=== PATIENT | female | born 1990 | race American Indian/Alaskan Native ===

== ENCOUNTER 2019-04-22 20:26 | Emergency (ER) | payer OTHER ==
--- NOTE | 2019-04-22 21:53 | Event Note ---
ED Screening Note ED Screening Note: pt presents RUQ pain radiating to the back that began today +nausea no vomiting no diarrhea no urinary sx PMHx gallstones no allergies to meds LNMP: two weeks ago This initial assessment/diagnostic orders/clinical plan/treatment(s) is/are subject to change based on patients health status, clinical progression and re- assessment by fellow clinical providers in the ED. Further treatment and workup at subsequent clinical providers discretion. Patient/guardian urged not to elope from the ED as their condition may be serious if not clinically assessed and managed. Initial orders include: labs, US, UA
[2019-04-22 22:26] LABS: Hematocrit 40.1 % (30.3-42.9); Mean Corpuscular HGB Conc 35 % (30-34); Mean Corpuscular Volume 88 fl (79-97); Platelet Count 280 K/mm3 (140-440); Red Blood Count 4.55 M/mm3 (3.65-5.03)
[2019-04-22 22:34] LABS: Alanine Aminotransferase 51 units/L (7-56); Albumin 3.5 g/dL (3.9-5); BUN/Creatinine Ratio 13; Blood Urea Nitrogen 10 mg/dL (7-17); Calcium 9.6 mg/dL (8.4-10.2); Hemolysis Index 16
[2019-04-22 22:57] LABS: Basophils % (Manual) 0 % (0.0-1.8); Eosinophils % (Manual) 0 % (0.0-4.3); RBC Morphology Normal; Total Cells Counted 100
[2019-04-22 23:10] LABS: Bacteria,Urine 1+ /HPF (Negative); Bilirubin,Urine NEG (Negative); Blood,Urine SM (Negative); Color,Urine Amber (Yellow); Mucus,Urine FEW /HPF
[2019-04-22 23:11] LABS: HCG Qualitative,Urine Negative (Negative); WBC,Urine > 182.0 /HPF (0.0-6.0)
[2019-04-23] MEDS ORDERED: KETOROLAC 30 MG/1 ML INJ IM ONE (00:26)
[2019-04-23] MEDS ORDERED: KETOROLAC 30 MG/1 ML INJ ONE (00:26)
--- NOTE | 2019-04-23 00:46 | Ultrasound Report ---
ULTRASOUND ABDOMEN, LIMITED (RIGHT UPPER QUADRANT) INDICATION: RUQ pain to back, hx of gallstones. COMPARISON: None available. FINDINGS: Pancreas: Visualized portion shows no significant abnormality. Liver: Normal. Gallbladder: Cholelithiasis. The gallbladder is otherwise unremarkable. Bile ducts: Normal. Common Bile Duct measures 1-2 mm. Free fluid: None. Additional Findings: None. IMPRESSION: 1. Cholelithiasis. Gallbladder wall measures 3 mm in diameter, at the upper limits of normal. No comm on duct dilatation or pericholecystic fluid. Signer Name: Gabriele Madrid MD Signed: 04/23/2019 12:42 AM Workstation Name: [email or web address]
[2019-04-23] MEDS ORDERED: ONDANSETRON 4 MG ODT TAB PO ONE (00:55)
[2019-04-23] MEDS ORDERED: SODIUM CHLORIDE 0.9% 1000 ML 1,000 ML IV ONE (00:58)
[2019-04-23] MEDS ORDERED: cefTRIAXone/NS 1 GM/50 ML 1 GM/50 ML BAG IV ONE (00:58)
--- NOTE | 2019-04-23 01:07 | Emergency Department Report ---
ED Abdominal Pain HPI - General Chief Complaint: Abdominal Pain Stated Complaint: GALL STONES Time Seen by Provider: 04/22/19 21:51 Source: patient Mode of arrival: Ambulatory Limitations: No Limitations - History of Present Illness Initial Comments: Ms. Berger is a 28-year-old -[place] female with a history of gallstones who presents for right flank pain radiating from abdomen to right flank pain described as 8/10 exacerbated by movement and deep inspiration. Patient states frequency and urgency. No hematuria no dysuria no vaginal discharge. No gallbladder and proximal gallbladder problems since last year. She is not currently taking a PPI or H2 moriah however patient is tolerating p.o. intake without nausea or vomiting. There is no fever or chills. MD Complaint: abdominal pain (right superpubic), flank pain Onset/Timin -: days(s) Location: suprapubic, R flank Radiation: R flank Migration to: suprapubic Severity: moderate Severity scale (0 -10): 8 Quality: aching, sharp Consistency: constant Improves With: nothing Worsens With: movement Associated Symptoms: dysuria. denies: nausea, vomiting, diarrhea - Related Data LMP Date: 04/09/19 Previous Rx's Medication Instructions Recorded Last Taken Type Ciprofloxacin HCl [Ciprofloxacin 500 mg PO Q12HR 10 Days #20 tab 04/23/19 Unknown Rx TAB] Famotidine [Pepcid] 20 mg PO BID #30 tablet 04/23/19 Unknown Rx Ketorolac [Toradol] 10 mg PO Q6H PRN #12 tablet 04/23/19 Unknown Rx metroNIDAZOLE [Flagyl] 500 mg PO Q8HR 10 Days #30 tablet 04/23/19 Unknown Rx Allergies Allergy/AdvReac Type Severity Reaction Status Date / Time No Known Allergies Allergy Verified 04/22/19 20:41 ED Review of Systems ROS: Stated complaint: GALL STONES Other details as noted in HPI Constitutional: denies: chills, fever Eyes: denies: eye pain, eye discharge, vision change ENT: denies: ear pain, throat pain Respiratory: denies: cough, shortness of breath, wheezing Cardiovascular: denies: chest pain, palpitations Endocrine: no symptoms reported Gastrointestinal: abdominal pain. denies: nausea, vomiting, diarrhea, constipation, hematemesis, melena Genitourinary: urgency, dysuria, frequency. denies: hematuria, discharge, abnormal menses, dyspareunia Musculoskeletal: denies: back pain, joint swelling, arthralgia Skin: denies: rash, lesions Neurological: denies: headache, weakness, paresthesias Psychiatric: denies: anxiety, depression Hematological/Lymphatic: denies: easy bleeding, easy bruising ED Past Medical Hx - Social History Smoking Status: Current Every Day Smoker Substance Use Type: Alcohol, Marijuana - Medications Home Medications: Home Medications Medication Instructions Recorded Confirmed Last Taken Type Ciprofloxacin HCl [Ciprofloxacin 500 mg PO Q12HR 10 Days #20 tab 04/23/19 Unknown Rx TAB] Famotidine [Pepcid] 20 mg PO BID #30 tablet 04/23/19 Unknown Rx Ketorolac [Toradol] 10 mg PO Q6H PRN #12 tablet 04/23/19 Unknown Rx metroNIDAZOLE [Flagyl] 500 mg PO Q8HR 10 Days #30 tablet 04/23/19 Unknown Rx ED Physical Exam - General Limitations: No Limitations General appearance: alert, in no apparent distress - Head Head exam: Present: atraumatic, normocephalic - Eye Eye exam: Present: normal appearance, PERRL, EOMI Pupils: Present: normal accommodation - ENT ENT exam: Present: mucous membranes moist - Neck Neck exam: Present: normal inspection - Respiratory Respiratory exam: Present: normal lung sounds bilaterally. Absent: respiratory distress, wheezes, stridor, chest wall tenderness - Cardiovascular Cardiovascular Exam: Present: regular rate, normal rhythm, normal heart sounds. Absent: systolic murmur, diastolic murmur, rubs, gallop - GI/Abdominal GI/Abdominal exam: Present: soft, normal bowel sounds. Absent: distended, tenderness, guarding, rebound, rigid, bruit, hernia - Rectal Rectal exam: Present: deferred - Extremities Exam Extremities exam: Present: normal inspection, full ROM, normal capillary refill - Back Exam Back exam: Present: normal inspection, full ROM, tenderness, CVA tenderness (R). Absent: rash noted - Neurological Exam Neurological exam: Present: alert, oriented X3, CN II-XII intact, normal gait - Psychiatric Psychiatric exam: Present: normal affect, normal mood - Skin Skin exam: Present: warm, dry, intact, normal color. Absent: rash ED Course Vital Signs 04/22/19 04/23/19 21:51 00:48 Temperature 98.3 F Pulse Rate 66 Respiratory 18 18 Rate Blood Pressure 142/81 O2 Sat by Pulse 100 Oximetry ED Medical Decision Making - Lab Data Result diagrams: 04/22/19 21:57 04/22/19 21:57 Labs 04/22/19 04/22/19 04/22/19 21:57 21:57 Unknown WBC 11.4 H RBC 4.55 Hgb 14.0 Hct 40.1 MCV 88 MCH 31 MCHC 35 H RDW 15.0 Plt Count 280 Lymph % (Auto) [employer] Specialist [place] % (Auto) Seed And Fertilizer Specialist Eos % (Auto) Seed And Fertilizer Specialist Baso % (Auto) Seed And Fertilizer Specialist Lymph # Seed And Fertilizer Specialist [place] # Seed And Fertilizer Specialist Eos # Seed And Fertilizer Specialist Baso # Seed And Fertilizer Specialist Add Manual Diff Complete Total Counted 100 Seg Neutrophils % [employer] Fertilizer Specialist Seg Neuts % (Manual) 72.0 H Band Neutrophils % 0 Lymphocytes % (Manual) 15.0 Reactive Lymphs % (Man) 0 Monocytes % (Manual) 13.0 H Eosinophils % (Manual) 0 Basophils % (Manual) 0 Metamyelocytes % 0 Myelocytes % 0 Promyelocytes % 0 Blast Cells % 0 Nucleated RBC % Not Reportable Seg Neutrophils # Seed And Fertilizer Specialist Seg Neutrophils # Man 8.2 H Band Neutrophils # 0.0 Lymphocytes # (Manual) 1.7 Abs React Lymphs (Man) 0.0 Monocytes # (Manual) 1.5 H Eosinophils # (Manual) 0.0 Basophils # (Manual) 0.0 Metamyelocytes # 0.0 Myelocytes # 0.0 Promyelocytes # 0.0 Blast Cells # 0.0 WBC Morphology Not Reportable Hypersegmented Neuts Not Reportable Hyposegmented Neuts Not Reportable Hypogranular Neuts Not Reportable Smudge Cells Not Reportable Toxic Granulation Not Reportable Toxic Vacuolation Not Reportable Dohle Bodies Not Reportable Pelger-Huet Anomaly Not Reportable Michelle Rods Not Reportable Platelet Estimate Not Reportable Clumped Platelets Not Reportable Plt Clumps, EDTA Not Reportable Large Platelets Not Reportable Giant Platelets Not Reportable Platelet Satelliting Not Reportable Plt Morphology Comment Not Reportable RBC Morphology Normal Dimorphic RBCs Not Reportable Polychromasia Not Reportable Hypochromasia Not Reportable Poikilocytosis Not Reportable Anisocytosis Not Reportable Microcytosis Not Reportable Macrocytosis Not Reportable Spherocytes Not Reportable Pappenheimer Bodies Not Reportable Sickle Cells Not Reportable Target Cells Not Reportable Tear Drop Cells Not Reportable Ovalocytes Not Reportable Helmet Cells Not Reportable Schaeffer-Star Bodies Not Reportable Harviell Rings Not Reportable [place] Cells Not Reportable Bite Cells Not Reportable Crenated Cell Not Reportable Elliptocytes Not Reportable Acanthocytes (Spur) Not Reportable Rouleaux Not Reportable Hemoglobin C Crystals Not Reportable Schistocytes Not Reportable Malaria parasites Not Reportable Varun Bodies Not Reportable Hem Pathologist Commnt No Sodium 137 Potassium 3.1 L Chloride 96.6 L Carbon Dioxide 23 Anion Gap 21 BUN 10 Creatinine 0.8 Estimated GFR > 60 BUN/Creatinine Ratio 13 Glucose 135 H Calcium 9.6 Total Bilirubin 1.40 H AST 19 ALT 51 Alkaline Phosphatase 94 Total Protein 8.1 Albumin 3.5 L Albumin/Globulin Ratio 0.8 Lipase 11 L Urine Color Yvonne Urine Turbidity Cloudy Urine pH 5.0 Ur Specific [place] 1.026 Urine Protein 100 mg/dl Urine Glucose (UA) Neg Urine Ketones Neg Urine Blood Sm Urine Nitrite Pos Urine Bilirubin Neg Urine Urobilinogen 4.0 Ur Leukocyte Esterase Lg Urine WBC (Auto) > 182.0 H Urine RBC (Auto) 7.0 U Epithel Cells (Auto) 16.0 H Urine Bacteria (Auto) 1+ Urine Mucus Few Urine Yeast (Budding) 2+ Urine HCG, Qual Negative - Radiology Data Radiology results: report reviewed, image reviewed ULTRASOUND ABDOMEN, LIMITED (RIGHT UPPER QUADRANT) INDICATION: RUQ pain to back, hx of gallstones. COMPARISON: None available. FINDINGS: Pancreas: Visualized portion shows no significant abnormality. Liver: Normal. Gallbladder: Cholelithiasis. The gallbladder is otherwise unremarkable. Bile ducts: Normal. Common Bile Duct measures 1-2 mm. Free fluid: None. Addit ional Findings: None. IMPRESSION: 1. Cholelithiasis. Gallbladder wall measures 3 mm in diameter, at the upper limits of normal. No common duct dilatation or pericholecystic fluid. Signer Name: Gabriele Madrid MD Signed: 04/23/2019 12:42 AM Workstation Name: [id number] Transcribed By: KEYONA Dictated By: Gabriele Madrid MD Electronically Authenticated By: Gabriele Madrid MD Signed Date/Time: 04/23/1941 DD/ TD/TT: Findings Reporting MD: Gabriele Madrid Dictation Time: April 23, 2019 00:35 Frame Nailer: Not available Accounting Associate Date: CT ABDOMEN AND PELVIS WITHOUT IV CONTRAST INDICATION: renal stone. Flank pain. COMPARISON: None available. TECHNIQUE: All CT scans at this facility use dose modulation, automated exposure control, iterative reconstruction or weight based dosing, when appropriate, to reduce radiation dose to as low as reasonably achievable. FINDINGS: Lung Bases: No significant abnormality. Skeletal System: No acute abnormality. ABDOMEN: Liver: No significant abnormality. Gallbladder: Multiple stones are seen in the gallbladder. There is diffuse gallbladder wall edema. Bile Ducts: No significant abnormality. Pancreas: No significant abnormality. Spleen: No significant abnormality. Adrenals: No significant abnormality. Right Kidney: There is a nonobstructing stone within an upper pole calyceal diverticulum. There is also lower pole nonobstructing stone. No hydronephrosis. However, there is mild thickening of the urothelium in the right renal pelvis and right ureter. Left Kidney: No significant abnormality. Upper GI tract: No significant abnormality. Lymph Nodes: No significant adenopathy. Aorta: No significant abnormality. Additional Findings: No significant abnormality. PELVIS: Colon: No acute abnormality. Urinary Bladder and Distal Ureters: Bladder is decompressed, limiting its evaluation. Appendix: No significant abnormality. Lymph Nodes: No significant adenopathy. Additional Findings: None. IMPRESSION: [facility] [address] [place] [address] P [phone] F [phone] [facility] - Report exported on Apr 23, 2019 01:43:51 -0600 - Page 2 of 2 1. Right nephrolithiasis, as above. No hydronephrosis. There is mild thickening of the right renal pelvis and right ureter which could be seen in the setting of pyonephrosis. The bladder is decompressed, limiting its evaluation. 2. Cholelithiasis with gallbladder wall thickening. This could be seen in the setting of cholecystitis. No common duct dilatation. Signer Name: Gabriele Madrid MD Signed: 04/23/2019 12:35 AM Workstation Name: [id number] - Medical Decision Making Ultrasound cholelithiasis without cholecystitis CT abdomen pelvis: non obstructing right renal stone, Cholelithiasis, with gallbladder wall edema, UA positive for nitrates white blood cells bacteria Patient treated with IV normal saline x1 L Rocephin 1 g , pt offered admission and general surgery consult, pt states Gallstones since 16 yrs old, not will to be admitted will follow up out patient, pt is a/o x 3, demontrates sound decision making capacity. pt has had the opportunity to ask and I have answered all questions to her satisfaction , including, possibility of worsing condition and even . plan: dx: UTI, Gallstones, Cholecystitis, Renal Stones, abx, nsaids, Pt will follow up with General surgery outpatient will call in am for appointment set up, Follow up with GI doctor, and follow up with urology given referrals to same, pt is signing out AMA at this time. Given strict instructions to return to emergency if symptoms worsen, pt verbalized agreement and understanding of same. Critical care attestation.: If time is entered above; I have spent that time in minutes in the direct care of this critically ill patient, excluding procedure time. ED Disposition Clinical Impression: Gallstones, Kidney stones, Cholecystitis UTI (urinary tract infection) Qualifiers: Urinary tract infection type: acute cystitis Hematuria presence: without hematuria Qualified Code(s): N30.00 - Acute cystitis without hematuria Disposition: LEFT AGAINST MED ADVICE Is pt being admited?: No Does the pt Need Aspirin: No Condition: Stable Instructions: Urinary Tract Infection in Women (ED), Kidney Stones (ED), Cholecystitis (ED), Cholelithiasis (ED) Prescriptions: Ciprofloxacin HCl [Ciprofloxacin TAB] 500 mg PO Q12HR 10 Days #20 tab metroNIDAZOLE [Flagyl] 500 mg PO Q8HR 10 Days #30 tablet Famotidine [Pepcid] 20 mg PO BID #30 tablet Ketorolac [Toradol] 10 mg PO Q6H PRN #12 tablet PRN Reason: Pain Referrals: EBENEZER GONZALEZ MD [Staff Physician] - 3-5 Days WIN RAMOS MD [Staff Physician] - ANDREW CASTELLANO MD [Staff Physician] - 2-3 Days [facility] [Provider Group] - 2-3 Days Forms: AMA Form Time of Disposition: 01:12
--- NOTE | 2019-04-23 02:45 | Cat Scan Report ---
CT ABDOMEN AND PELVIS WITHOUT IV CONTRAST INDICATION: renal stone. Flank pain. COMPARISON: None available. TECHNIQUE: All CT scans at this facility use dose modulation, automated exposure control, iterative reconstructi on or weight based dosing, when appropriate, to reduce radiation dose to as low as reasonably achieva ble. FINDINGS: Lung Bases: No significant abnormality. Skeletal System: No acute abnormality. ABDOMEN: Liver: No significant abnormality. Gallbladder: Multiple stones are seen in the gallbladder. There is diffuse gallbladder wall edema. Bile Ducts: No significant abnormality. Pancreas: No significant abnormality. Spleen: No significant abnormality. Adrenals: No significant abnormality. Right Kidney: There is a nonobstructing stone within an upper pole calyceal diverticulum. There is al so lower pole nonobstructing stone. No hydronephrosis. However, there is mild thickening of the uroth elium in the right renal pelvis and right ureter. Left Kidney: No significant abnormality. Upper GI tract: No significant abnormality. Lymph Nodes: No significant adenopathy. Aorta: No significant abnormality. Additional Findings: No significant abnormality. PELVIS: Colon: No acute abnormality. Urinary Bladder and Distal Ureters: Bladder is decompressed, limiting its evaluation. Appendix: No significant abnormality. Lymph Nodes: No significant adenopathy. Additional Findings: None. IMPRESSION: 1. Right nephrolithiasis, as above. No hydronephrosis. There is mild thickening of the right renal p rc and right ureter which could be seen in the setting of pyonephrosis. The bladder is decompresse d, limiting its evaluation. 2. Cholelithiasis with gallbladder wall thickening. This could be seen in the setting of cholecystit is. No common duct dilatation. Signer Name: Gabriele Madrid MD Signed: 04/23/2019 1:35 AM Workstation Name: [email or web address]
[2019-04-23 03:26] VITALS: BP 134/81
== END 2019-04-23 03:25 | disposition left against medical advice (07) ==
LOC: ED 20:26
DX: N39.0 Urinary tract infection, site not specified (principal); K80.60 Calculus of gallbladder and bile duct with cholecystitis, unspecified, without obstruction; N20.0 Calculus of kidney; F17.200 Nicotine dependence, unspecified, uncomplicated; F12.10 Cannabis abuse, uncomplicated
CPT/HCPCS: 36415; 74176; 76705; 80053; 81001; 81025; 83690; 85007; 85025; 96365; 96372; 99284; J0696; J1885; J7030; Q0162

== ENCOUNTER 2019-04-23 23:59 | Inpatient (IN) | payer OTHER ==
[2019-04-24] MEDS ORDERED: SODIUM CHLORIDE 0.9% 1000 ML IV SOLN IV ONE (00:10)
[2019-04-24] MEDS ORDERED: KETOROLAC 30 MG/1 ML INJ IV ONE (00:12)
[2019-04-24] MEDS ORDERED: ONDANSETRON 4 MG/2 ML INJ IV ONE ×2 (00:12→03:05)
[2019-04-24] MEDS: metroNIDAZOLE/NS 500 MG/100 ML 500 MG/100 ML BAG IV SCH ×4 (00:29→23:22)
[2019-04-24] MEDS: CEFEPIME/NS 2 GM/100 ML 2 GM/100 ML BAG IV SCH ×4 (00:30→23:10)
[2019-04-24 00:41] LABS: Mean Corpuscular HGB Conc 37 % (30-34); Mean Corpuscular Volume 86 fl (79-97); Red Blood Count 3.72 M/mm3 (3.65-5.03); Red Cell Distribution Width 14.6 % (13.2-15.2)
[2019-04-24 01:03] LABS: Alanine Aminotransferase 38 units/L (7-56); BUN/Creatinine Ratio 7; Blood Urea Nitrogen 7 mg/dL (7-17); Calcium 8.4 mg/dL (8.4-10.2); Hemolysis Index 6
--- NOTE | 2019-04-24 01:21 | Ultrasound Report ---
ULTRASOUND ABDOMEN, LIMITED (RIGHT UPPER QUADRANT) INDICATION: RUQ pain, now fever. COMPARISON: CT one day prior, ultrasound 2 days prior FINDINGS: Pancreas: Obscured by bowel gas. Liver: Normal. Gallbladder: Cholelithiasis is noted. Gallbladder wall measures 3 mm. Bile ducts: Normal. Common Bile Duct measures 1-2 mm. Free fluid: None. Additional Findings: None. IMPRESSION: 1. Cholelithiasis. Gallbladder wall edema seen on the CT from one day prior is not appreciated sonogr aphically. The gallbladder wall measures 3 mm which is within normal limits. No biliary dilatation. Signer Name: Gabriele Madrid MD Signed: 04/24/2019 1:17 AM Workstation Name: [id number]
[2019-04-24 01:40] LABS: Hematocrit 31.9 % (30.3-42.9); Hemoglobin 11.7 gm/dl (10.1-14.3)
[2019-04-24 01:50] LABS: Platelet Count 243 K/mm3 (140-440)
[2019-04-24 02:47] LABS: Bacteria,Urine 1+ /HPF (Negative); Bilirubin,Urine SM (Negative); Blood,Urine SM (Negative); Color,Urine Amber (Yellow); Hyaline Casts,Urine 4 /LPF; Mucus,Urine FEW /HPF
--- NOTE | 2019-04-24 03:05 | Emergency Department Report ---
ED Abdominal Pain HPI - General Chief Complaint: Abdominal Pain Stated Complaint: FLU SYMPTOMS/GALLBLADDER COMPLICATIONS Time Seen by Provider: 04/24/19 00:08 Source: patient, EMS Mode of arrival: Stretcher Limitations: No Limitations - History of Present Illness Initial Comments: Patient is a 28-year-old F [place]ian female who is presenting with nausea vomiting and worsening pain in the right flank. Patient was here yesterday and diagnosed with gallstones as well as pyelonephritis. Patient is given Cipro medications for symptomatic relief but is been unable to keep anything down secondary to nausea vomiting. Patient states she is has pain in the right upper quadrant with radiation to the right CVA region. Patient states she had chills this evening. She denies cough cold or congestion. Severity scale (0 -10): 9 Quality: aching Consistency: constant Improves With: nothing Worsens With: nothing Associated Symptoms: nausea, vomiting, fever, chills. denies: diarrhea, constipation, dysuria, hematemesis, hematochezia, melena, hematuria - Related Data Previous Rx's Medication Instructions Recorded Last Taken Type Ciprofloxacin HCl [Ciprofloxacin 500 mg PO Q12HR 10 Days #20 tab 04/23/19 Unknown Rx TAB] Famotidine [Pepcid] 20 mg PO BID #30 tablet 04/23/19 Unknown Rx Ketorolac [Toradol] 10 mg PO Q6H PRN #12 tablet 04/23/19 Unknown Rx metroNIDAZOLE [Flagyl] 500 mg PO Q8HR 10 Days #30 tablet 04/23/19 Unknown Rx Allergies Allergy/AdvReac Type Severity Reaction Status Date / Time No Known Allergies Allergy Verified 04/22/19 20:41 ED Review of Systems ROS: Stated complaint: FLU SYMPTOMS/GALLBLADDER COMPLICATIONS Other details as noted in HPI Comment: All other systems reviewed and negative ED Past Medical Hx - Past Medical History Previous Medical History?: Yes Additional medical history: GALLSTONES - Surgical History Past Surgical History?: No - Social History Smoking Status: Current Every Day Smoker Substance Use Type: Alcohol, Marijuana - Medications Home Medications: Home Medications Medication Instructions Recorded Confirmed Last Taken Type Ciprofloxacin HCl [Ciprofloxacin 500 mg PO Q12HR 10 Days #20 tab 04/23/19 Unknown Rx TAB] Famotidine [Pepcid] 20 mg PO BID #30 tablet 04/23/19 Unknown Rx Ketorolac [Toradol] 10 mg PO Q6H PRN #12 tablet 04/23/19 Unknown Rx metroNIDAZOLE [Flagyl] 500 mg PO Q8HR 10 Days #30 tablet 04/23/19 Unknown Rx ED Physical Exam - General Limitations: No Limitations General appearance: alert, in distress - Head Head exam: Present: atraumatic, normocephalic - Eye Eye exam: Present: normal appearance - ENT ENT exam: Present: mucous membranes moist - Neck Neck exam: Present: normal inspection - Respiratory Respiratory exam: Present: normal lung sounds bilaterally. Absent: respiratory distress, wheezes, rales, rhonchi - Cardiovascular Cardiovascular Exam: Present: regular rate, normal rhythm, tachycardia, normal heart sounds. Absent: systolic murmur, diastolic murmur, rubs, gallop - GI/Abdominal GI/Abdominal exam: Present: soft, tenderness (RUQ pain/R flank), normal bowel sounds. Absent: distended, guarding, rebound, rigid - Extremities Exam Extremities exam: Present: normal inspection - Back Exam Back exam: Present: normal inspection, CVA tenderness (R) - Neurological Exam Neurological exam: Present: alert, oriented X3 - Psychiatric Psychiatric exam: Present: normal affect, normal mood - Skin Skin exam: Present: warm, dry, intact, normal color. Absent: rash ED Course Vital Signs 04/24/19 04/24/19 04/24/19 00:09 00:13 00:15 Temperature 103.1 F H Pulse Rate 116 H 117 H Respiratory 15 18 28 H Rate Blood Pressure 99/55 100/55 O2 Sat by Pulse 97 100 Oximetry 04/24/19 04/24/19 04/24/19 00:30 00:45 01:00 Temperature Pulse Rate 106 H 103 H 102 H Respiratory 18 20 21 Rate Blood Pressure 93/57 101/59 O2 Sat by Pulse 96 98 97 Oximetry 04/24/19 04/24/19 04/24/19 01:16 01:30 01:46 Temperature Pulse Rate 109 H 99 H 103 H Respiratory 27 H 17 24 Rate Blood Pressure O2 Sat by Pulse 97 98 97 Oximetry 04/24/19 04/24/19 04/24/19 02:00 02:16 02:30 Temperature Pulse Rate 102 H 104 H 101 H Respiratory 14 16 12 Rate Blood Pressure O2 Sat by Pulse 98 98 98 Oximetry ED Medical Decision Making - Lab Data Result diagrams: 04/24/19 00:19 04/24/19 00:19 Lab Results 04/24/19 04/24/19 04/24/19 Range/Units 00:19 00:19 00:19 WBC 13.3 H (4.5-11.0) K/mm3 RBC 3.72 (3.65-5.03) M/mm3 Hgb 11.7 (10.1-14.3) gm/dl Hct 31.9 D (30.3-42.9) % MCV 86 (79-97) fl MCH 31 (28-32) pg MCHC 37 H (30-34) % RDW 14.6 (13.2-15.2) % Plt Count 243 (140-440) K/mm3 Sodium 138 (137-145) mmol/L Potassium 3.3 L (3.6-5.0) mmol/L Chloride 99.9 (98-107) mmol/L Carbon Dioxide 20 L (22-30) mmol/L Anion Gap 21 mmol/L BUN 7 (7-17) mg/dL Creatinine 1.0 (0.7-1.2) mg/dL Estimated GFR > 60 ml/min BUN/Creatinine Ratio 7 % Glucose 136 H (65-100) mg/dL Lactic Acid 3.60 H* (0.7-2.0) mmol/L Calcium 8.4 (8.4-10.2) mg/dL Total Bilirubin 2.80 H (0.1-1.2) mg/dL AST 34 (5-40) units/L ALT 38 (7-56) units/L Alkaline Phosphatase 159 H (35-129) units/L Total Protein 6.6 (6.3-8.2) g/dL Albumin 3.0 L (3.9-5) g/dL Albumin/Globulin Ratio 0.8 % Urine Color (Yellow) Urine Turbidity (Clear) Urine pH (5.0-7.0) Ur Specific [place] (1.003-1.030) Urine Protein (Negative) mg/dL Urine Glucose (UA) (Negative) mg/dL Urine Ketones (Negative) mg/dL Urine Blood (Negative) Urine Nitrite (Negative) Urine Bilirubin (Negative) Urine Ictotest (Negative) Urine Urobilinogen (<2.0) mg/dL Ur Leukocyte Esterase (Negative) Urine WBC (Auto) (0.0-6.0) /HPF Urine RBC (Auto) (0.0-6.0) /HPF U Epithel Cells (Auto) (0-13.0) /HPF Urine Bacteria (Auto) (Negative) /HPF Urine WBC Clumps /HPF Hyaline Casts /LPF Urine Mucus /HPF 04/24/19 04/24/19 04/24/19 Range/Units 01:22 02:15 02:15 WBC (4.5-11.0) K/mm3 RBC (3.65-5.03) M/mm3 Hgb (10.1-14.3) gm/dl Hct (30.3-42.9) % MCV (79-97) fl MCH (28-32) pg MCHC (30-34) % RDW (13.2-15.2) % Plt Count (140-440) K/mm3 Sodium (137-145) mmol/L Potassium (3.6-5.0) mmol/L Chloride (98-107) mmol/L Carbon Dioxide (22-30) mmol/L Anion Gap mmol/L BUN (7-17) mg/dL Creatinine (0.7-1.2) mg/dL Estimated GFR ml/min BUN/Creatinine Ratio % Glucose (65-100) mg/dL Lactic Acid 2.00 2.20 H* (0.7-2.0) mmol/L Calcium (8.4-10.2) mg/dL Total Bilirubin (0.1-1.2) mg/dL AST (5-40) units/L ALT (7-56) units/L Alkaline Phosphatase (35-129) units/L Total Protein (6.3-8.2) g/dL Albumin (3.9-5) g/dL Albumin/Globulin Ratio % Urine Color Yvonne (Yellow) Urine Turbidity Cloudy (Clear) Urine pH 5.0 (5.0-7.0) Ur Specific [place] 1.020 (1.003-1.030) Urine Protein 100 mg/dl (Negative) mg/dL Urine Glucose (UA) Neg (Negative) mg/dL Urine Ketones Neg (Negative) mg/dL Urine Blood Sm (Negative) Urine Nitrite Neg (Negative) Urine Bilirubin Sm (Negative) Urine Ictotest Positive (Negative) Urine Urobilinogen 4.0 (<2.0) mg/dL Ur Leukocyte Esterase Mod (Negative) Urine WBC (Auto) 141.0 H (0.0-6.0) /HPF Urine RBC (Auto) 8.0 (0.0-6.0) /HPF U Epithel Cells (Auto) 6.0 (0-13.0) /HPF Urine Bacteria (Auto) 1+ (Negative) /HPF Urine WBC Clumps 3+ /HPF Hyaline Casts 4 /LPF Urine Mucus Few /HPF - EKG Data -: EKG Interpreted by Mi EKG shows normal: sinus rhythm, axis, intervals, QRS complexes, ST-T waves Rate: tachycardia - Radiology Data CT ABDOMEN AND PELVIS WITHOUT IV CONTRAST INDICATION: renal stone. Flank pain. COMPARISON: None available. TECHNIQUE: All CT scans at this facility use dose modulation, automated exposure control, iterative reconstruction or weight based dosing, when appropriate, to reduce radiation dose to as low as reasonably achievable. FINDINGS: Lung Bases: No significant abnormality. Skeletal System: No acute abnormality. ABDOMEN: Liver: No significant abnormality. Gallbladder: Multiple stones are seen in the gallbladder. There is diffuse gallbladder wall edema. Bile Ducts: No significant abnormality. Pancreas: No significant abnormality. Spleen: No significant abnormality. Adrenals: No significant abnormality. Right Kidney: There is a nonobstructing stone within an upper pole calyceal diverticulum. There is also lower pole nonobstructing stone. No hydronephrosis. However, there is mild thickening of the urothelium in the right renal pelvis and right ureter. Left Kidney: No significant abnormality. Upper GI tract: No significant abnormality. Lymph Nodes: No significant adenopathy. Aorta: No significant abnormality. Additional Findings: No significant abnormality. PELVIS: Colon: No acute abnormality. Urinary Bladder and Distal Ureters: Bladder is decompressed, limiting its evaluation. Appendix: No significant abnormality. Lymph Nodes: No significant adenopathy. Additional Findings: None. IMPRESSION: 1. Right nephrolithiasis, as above. No hydronephrosis. There is mild thickening of the right renal pelvis and right ureter which could be seen in the setting of pyonephrosis. The bladder is decompressed, limiting its evaluation. 2. Cholelithiasis with gallbladder wall thickening. This could be seen in the setting of cholecystitis. No common duct dilatation. Signer Name: Gabriele Madrid MD Signed: 04/23/2019 1:35 AM Workstation Name: [id number] Transcribed By: KEYONA Dictated By: Gabriele Madrid MD Electronically Authenticated By: Gabriele Madrid MD Signed Date/Time: 04/23/19 0135 Ordering Physician: JASON ESTRADA MD Date of Service: 04/24/19 Procedure(s): US abdomen limited Accession Number(s): [id number] cc: JASON ESTRADA MD ULTRASOUND ABDOMEN, LIMITED (RIGHT UPPER QUADRANT) INDICATION: RUQ pain, now fever. COMPARISON: CT one day prior, ultrasound 2 days prior FINDINGS: Pancreas: Obscured by bowel gas. Liver: Normal. Gallbladder: Cholelithiasis is noted. Gallbladder wall measures 3 mm. Bile ducts: Normal. Common Bile Duct measures 1-2 mm. Free fluid: None. Additional Findings: None. IMPRESSION: 1. Cholelithiasis. Gallbladder wall edema seen on the CT from one day prior is not appreciated sonographically. The gallbladder wall measures 3 mm which is within normal limits. No biliary dilatation. Signer Name: Gabriele Madrid MD Signed: 04/24/2019 1:17 AM Workstation Name: [id number] - Medical Decision Making Patient is failed outpatient therapy for her pyelonephritis. Patient still has UTI present and CVA tenderness. White count is improved creased since yesterday. Patient meets criteria for admission for continued treatment of her pyelonephritis. Patient also does have some right upper quadrant pain. Does not appear as though the patient has progression of her cholelithiasis however she may need consultation with surgery about having her gallbladder removed. Critical care attestation.: If time is entered above; I have spent that time in minutes in the direct care of this critically ill patient, excluding procedure time. ED Disposition Clinical Impression: Pyelonephritis Disposition: OP ADMIT IP TO THIS HOSP Is pt being admited?: Yes Does the pt Need Aspirin: No Condition: Stable Referrals: PRIMARY CARE, [Primary Care Provider] - 3-5 Days Time of Disposition: 03:23
[2019-04-24 03:21] LABS: Ictotest,Urine Positive (Negative)
[2019-04-24] MEDS ORDERED: ONDANSETRON 4 MG/2 ML INJ IV PRN (03:29)
--- NOTE | 2019-04-24 03:31 | History and Physical Report ---
History of Present Illness History of present illness: 28-year-old woman with no medical problem comes emergency room with complaints of epigastric pain. She was seen here yesterday for the same symptoms, diagnosed with acute pyelonephritis and given ciprofloxacin to take. The patient continues to have nausea vomiting, unable to tolerate oral intake, Schrandt turns today with worsening of her symptoms. Admits to urinary frequency, no fever or chills. Epigastric pain is described as dull, constant, intensity 6/10, radiating to the back, cannot identify exacerbating factors. Patient will be admitted for acute pyelonephritis, gallstone Review Of Systems: Constitutional: no weight loss, fever, chills Ears, eyes, nose, mouth and throat: no nasal congestion, no nasal discharge, no sinus pressure, blurry vision, diplopia Neck: No neck pain or rigidity. Cardiovascular: No palpitations, chest pain Respiratory: No shortness of breath, cough Gastrointestinal: No hematochezia Genitourinary : no dysuria, +frequency Musculoskeletal: no muscle ache , joint pain Integumentary: no rash, no pruritis Neurological: no parathesias, focal weakness Endocrine: no cold or heat intolerance, no polyuria or polydipsia Hematologic/Lymphatic: no easy bruising, no easy bleeding, no gland swelling Allergic/Immunologic: no urticaria, no angioedema. PAST MEDICAL HISTORY: None PAST SURGICAL HISTORY: None SOCIAL HISTORY: Denies alcohol, smokes 5 cigars a day, none drugs FAMILY HISTORY: Hypertension Medications and Allergies Allergies Allergy/AdvReac Type Severity Reaction Status Date / Time No Known Allergies Allergy Verified 04/22/19 20:41 Home Medications Medication Instructions Recorded Confirmed Last Taken Type Ciprofloxacin HCl [Ciprofloxacin 500 mg PO Q12HR 10 Days #20 tab 04/23/19 04/24/19 Unknown Rx TAB] Famotidine [Pepcid] 20 mg PO BID #30 tablet 04/23/19 04/24/19 Unknown Rx Ketorolac [Toradol] 10 mg PO Q6H PRN #12 tablet 04/23/19 04/24/19 Unknown Rx metroNIDAZOLE [Flagyl] 500 mg PO Q8HR 10 Days #30 tablet 04/23/19 04/24/19 Unknown Rx Active Meds: Active Medications Cefepime HCl (Cefepime/Ns 2 Gm/100 Ml) 2 gm in 100 mls @ 200 mls/hr IV Q8HR IJEOMA; Protocol Last Admin: 04/24/19 00:30 Dose: 200 mls/hr Documented by: Metronidazole (Flagyl 500 Mg/100 Ml) 500 mg in 100 mls @ 100 mls/hr IV Q8HR IJEOMA; Protocol Last Admin: 04/24/19 00:29 Dose: 100 mls/hr Documented by: Exam - Physical Exam Narrative exam: Gen. appearance: Patient lying in bed, no apparent distress HEENT: Normocephalic, atraumatic, pupils equally round and reactive to light, extraocular movement intact, and no sclericterus,. No JVD or thyromegaly or nodule,neck supple, no carotid bruit ,mucous membranes moist, no exudate or erythema Heart: S1, S2, regular rate and rhythm Lungs clear bilaterally, breathing comfortable Abdomen: Positive bowel sounds, tender in the epigastric area, nondistended, no organomegaly Extremity: no edema, cyanosis, clubbing Skin: No rash, nodules, warm, dry Neuro: speech is fluent, moves extremities, sensory intact - Constitutional Vitals: Temp Pulse Resp BP Pulse Ox 103.1 F H 101 H 12 101/59 98 04/24/19 00:13 04/24/19 02:30 04/24/19 02:30 04/24/19 00:45 04/24/19 02:30 Results - Labs CBC & Chem 7: 04/24/19 00:19 04/24/19 00:19 Labs: Abnormal lab results 04/24/19 04/24/19 04/24/19 Range/Units 00:19 00:19 00:19 WBC 13.3 H (4.5-11.0) K/mm3 MCHC 37 H (30-34) % Potassium 3.3 L (3.6-5.0) mmol/L Carbon Dioxide 20 L (22-30) mmol/L Glucose 136 H (65-100) mg/dL Lactic Acid 3.60 H* (0.7-2.0) mmol/L Total Bilirubin 2.80 H (0.1-1.2) mg/dL Alkaline Phosphatase 159 H (35-129) units/L Albumin 3.0 L (3.9-5) g/dL Urine WBC (Auto) (0.0-6.0) /HPF 04/24/19 04/24/19 Range/Units 02:15 02:15 WBC (4.5-11.0) K/mm3 MCHC (30-34) % Potassium (3.6-5.0) mmol/L Carbon Dioxide (22-30) mmol/L Glucose (65-100) mg/dL Lactic Acid 2.20 H* (0.7-2.0) mmol/L Total Bilirubin (0.1-1.2) mg/dL Alkaline Phosphatase (35-129) units/L Albumin (3.9-5) g/dL Urine WBC (Auto) 141.0 H (0.0-6.0) /HPF - Imaging and Cardiology US - abdomen: report reviewed Assessment and Plan Assessment Acute pyelonephritis, failed outpatient therapy Start IV Rocephin, follow cultures, IV fluid Gallstones Consult surgery, IV morphine, DVT prophylaxis
[2019-04-24 03:55] LABS: Basophils % (Manual) 0 % (0.0-1.8); Eosinophils % (Manual) 0 % (0.0-4.3); Monocytes % (Manual) 0 % (0.0-7.3); Platelet Estimate Consistent w Auto; RBC Morphology Normal; Total Cells Counted 100
[2019-04-24] MEDS: SODIUM CHLORIDE 0.9% 1000 ML 1,000 ML IV SCH ×2 (05:24→17:42)
[2019-04-24] MEDS: MORPHINE 2 MG/1 ML INJ IV PRN ×4 (06:14→23:17)
--- NOTE | 2019-04-24 08:24 | Event Note ---
Date: 04/24/19 Patient seen and examined 28 y/o female presented with abdominal pain n/v cont current mx and plan as dictated in h/p A/P Sepsis with Acute pyelonephritis, failed outpatient therapy - cont IV Rocephin, follow cultures, IV fluid Cholelithiasis - Consult surgery, IV morphine, DVT prophylaxis, SCD
[2019-04-24] MEDS: ENOXAPARIN 40 MG/0.4 ML INJ SUB-Q SCH (09:30)
--- NOTE | 2019-04-24 09:34 | Consultation ---
History of Present Illness Consult date: 04/24/19 Reason for consult: gallstones Requesting physician: BO CHIN Chief complaint: abdominal pain, N/V. - History of present illness History of present illness: 28yo F who was recently diagnosed with pyelonephritis was admitted for failure of therapy. Patient was also noted to have gallstones. General surgery was consulted. Patient reports that she has had gallstones since the age of 17. She has had recurrent abdominal pain which is required admission at times. She has been advised to have her gallbladder removed, but she was unable to get the surgery due to lack of insurance. In the past, she would have attacks of pain in the epigastric area when she drinks alcohol or has spicy foods. Denies heartburn. Does not take any heartburn medicine. Pain would last a few hours at a time. It would radiate into the back. She is starting to feel better compared to last night. Nausea and vomiting have decreased. Pain has decreased Past History Past Medical History: No medical history Past Surgical History: No surgical history Social history: smoking (cigars daily), other (drinks alcohol a few times a week). denies: prescription drug abuse, IV drug use Family history: no significant family history Medications and Allergies Allergies Allergy/AdvReac Type Severity Reaction Status Date / Time No Known Allergies Allergy Verified 04/22/19 20:41 Home Medications Medication Instructions Recorded Confirmed Last Taken Type Ciprofloxacin HCl [Ciprofloxacin 500 mg PO Q12HR 10 Days #20 tab 04/23/19 04/24/19 Unknown Rx TAB] Famotidine [Pepcid] 20 mg PO BID #30 tablet 04/23/19 04/24/19 Unknown Rx Ketorolac [Toradol] 10 mg PO Q6H PRN #12 tablet 04/23/19 04/24/19 Unknown Rx metroNIDAZOLE [Flagyl] 500 mg PO Q8HR 10 Days #30 tablet 04/23/19 04/24/19 Unknown Rx Active Meds: Active Medications Acetaminophen (Tylenol) 650 mg PO Q4H PRN PRN Reason: Pain MILD(1-3)/Fever >100.5/RANKIN Enoxaparin Sodium (Enoxaparin) 40 mg SUB-Q QDAY IJEOMA Last Admin: 04/24/19 09:30 Dose: 40 mg Documented by: Cefepime HCl (Cefepime/Ns 2 Gm/100 Ml) 2 gm in 100 mls @ 200 mls/hr IV Q8HR IJEOMA; Protocol Last Admin: 04/24/19 07:38 Dose: 200 mls/hr Documented by: Metronidazole (Flagyl 500 Mg/100 Ml) 500 mg in 100 mls @ 100 mls/hr IV Q8HR IJEOMA; Protocol Last Admin: 04/24/19 06:12 Dose: 100 mls/hr Documented by: Sodium Chloride (Nacl 0.9% 1000 Ml) 1,000 mls @ 150 mls/hr IV DIRECT IJEOMA Last Admin: 04/24/19 05:24 Dose: 150 mls/hr Documented by: Morphine Sulfate (Morphine) 2 mg IV Q4H PRN PRN Reason: Pain, Moderate (4-6) Last Admin: 04/24/19 06:14 Dose: 2 mg Documented by: Ondansetron HCl (Zofran) 4 mg IV Q4H PRN PRN Reason: Nausea And Vomiting Sodium Chloride (Sodium Chloride Flush Syringe 10 Ml) 10 ml IV BID [facility] Last Admin: 04/24/19 09:31 Dose: 10 ml Documented by: Sodium Chloride (Sodium Chloride Flush Syringe 10 Ml) 10 ml IV PRN PRN PRN Reason: LINE FLUSH Review of Systems - Constitutional fatigue, no weight loss, no weight gain, no chronic pain - Cardiovascular no chest pain, no shortness of breath - Respiratory no cough - Gastrointestinal abdominal pain, nausea, vomiting, change in bowel habits, dyspepsia/bloating - Genitourinary Genitourinary: flank pain - Muskuloskeletal low back pain - Integumentary no rash, no pruritis, no sores, no wounds, no jaundice Exam Vital Signs Resp 15 04/24/19 00:09 - General physical appearance Positive: well developed, well nourished, no distress, no pain, other (appears tired) - Eyes Positive: normal occular movement. Negative: icteric - Respiratory Positive: normal expansion, normal respiratory effort, clear to auscultation - Cardiovascular Rhythm: regular - Abdomen Abdomen: Present: soft, tender (Mainly in epigastric region. Mild tenderness noted in right upper quadrant.), bowel sounds hypoactive, guarding (In the right upper quadrant.). Absent: distended, masses, rigid, wound, surgical scars - Integumentary no rash, no growths, no abnormal pigmentation - Neurologic Neurologic: alert and oriented to time, place and person, motor strength and sensation are grossly intact - Psychiatric Psychiatric: appropriate mood/affect, intact judgment & insight, cooperative Results - Labs 04/24/19 00:19 04/24/19 00:19 Abnormal lab results 04/24/19 04/24/19 04/24/19 Range/Units 00:19 00:19 00:19 WBC 13.3 H (4.5-11.0) K/mm3 MCHC 37 H (30-34) % Lymphocytes % (Manual) 0 L (13.4-35.0) % Lymphocytes # (Manual) 0.0 L (1.2-5.4) K/mm3 Potassium 3.3 L (3.6-5.0) mmol/L Carbon Dioxide 20 L (22-30) mmol/L Glucose 136 H (65-100) mg/dL Lactic Acid 3.60 H* (0.7-2.0) mmol/L Total Bilirubin 2.80 H (0.1-1.2) mg/dL Alkaline Phosphatase 159 H (35-129) units/L Albumin 3.0 L (3.9-5) g/dL Urine WBC (Auto) (0.0-6.0) /HPF 04/24/19 04/24/19 04/24/19 Range/Units 02:15 02:15 05:46 WBC (4.5-11.0) K/mm3 MCHC (30-34) % Lymphocytes % (Manual) (13.4-35.0) % Lymphocytes # (Manual) (1.2-5.4) K/mm3 Potassium (3.6-5.0) mmol/L Carbon Dioxide (22-30) mmol/L Glucose (65-100) mg/dL Lactic Acid 2.20 H* 2.20 H* (0.7-2.0) mmol/L Total Bilirubin (0.1-1.2) mg/dL Alkaline Phosphatase (35-129) units/L Albumin (3.9-5) g/dL Urine WBC (Auto) 141.0 H (0.0-6.0) /HPF Diabetes panel 04/24/19 Range/Units 00:19 Sodium 138 (137-145) mmol/L Potassium 3.3 L (3.6-5.0) mmol/L Chloride 99.9 (98-107) mmol/L Carbon Dioxide 20 L (22-30) mmol/L BUN 7 (7-17) mg/dL Creatinine 1.0 (0.7-1.2) mg/dL Glucose 136 H (65-100) mg/dL Calcium 8.4 (8.4-10.2) mg/dL AST 34 (5-40) units/L ALT 38 (7-56) units/L Alkaline Phosphatase 159 H (35-129) units/L Total Protein 6.6 (6.3-8.2) g/dL Albumin 3.0 L (3.9-5) g/dL Calcium panel 04/24/19 Range/Units 00:19 Calcium 8.4 (8.4-10.2) mg/dL Albumin 3.0 L (3.9-5) g/dL Pituitary panel 04/24/19 Range/Units 00:19 Sodium 138 (137-145) mmol/L Potassium 3.3 L (3.6-5.0) mmol/L Chloride 99.9 (98-107) mmol/L Carbon Dioxide 20 L (22-30) mmol/L BUN 7 (7-17) mg/dL Creatinine 1.0 (0.7-1.2) mg/dL Glucose 136 H (65-100) mg/dL Calcium 8.4 (8.4-10.2) mg/dL Adrenal panel 04/24/19 Range/Units 00:19 Sodium 138 (137-145) mmol/L Potassium 3.3 L (3.6-5.0) mmol/L Chloride 99.9 (98-107) mmol/L Carbon Dioxide 20 L (22-30) mmol/L BUN 7 (7-17) mg/dL Creatinine 1.0 (0.7-1.2) mg/dL Glucose 136 H (65-100) mg/dL Calcium 8.4 (8.4-10.2) mg/dL Total Bilirubin 2.80 H (0.1-1.2) mg/dL AST 34 (5-40) units/L ALT 38 (7-56) units/L Alkaline Phosphatase 159 H (35-129) units/L Total Protein 6.6 (6.3-8.2) g/dL Albumin 3.0 L (3.9-5) g/dL - Imaging CT scan - abdomen: report reviewed, image reviewed CT scan - pelvis: report reviewed, image reviewed US - abdomen: report reviewed, image reviewed Assessment and Plan - Patient Problems (1) Gallstones Current Visit: No Status: Acute Plan to address problem: Pt stable. Patient has a long history of cholelithiasis. Her laboratory studies and imaging have conflicts. While the total bilirubin and alkaline phosphatase are elevated, her AST and ALT are normal. Also, while the CT scan suggested an abnormal gallbladder, the ultrasound is completely normal. As it would be very unusual to have 2 separate infections at the same time i.e., pyelonephritis and acute cholecystitis, I will observe her on antibiotics and repeat her labs tomorrow. If the LFTs are still abnormal or worsening, I may order a HIDA scan to check for cholecystitis and for any biliary obstruction. Clinically, she appears to have an ileus which could account for her nausea and vomiting. This is most likely secondary to her pyelonephritis. I will change her diet from regular to clears. Her history is also suggestive of possible peptic ulcer disease. I will go ahead and order twice daily Protonix and schedule Carafate. If she does not have an acute infectious or obstructive problem with the gallbladder, it would be best to wait for surgery as she has 2 significant risk factors for complications-active smoking and active remote infection. This was explained to the patient and she understands. We will follow along. Please call with questions Time=30min
[2019-04-24] MEDS ORDERED: LACTATED RINGERS 1,000 ML IV ONE ×2 (10:23→15:00)
[2019-04-24] MEDS: PANTOPRAZOLE 40 MG INJ IV SCH ×2 (13:50→23:13)
[2019-04-24] MEDS: SUCRALFATE 1 GM TAB PO SCH ×2 (13:51→17:44)
[2019-04-24] MEDS: ACETAMINOPHEN 325 MG TAB PO PRN (19:22)
[2019-04-25] MEDS: SUCRALFATE 1 GM TAB PO SCH ×5 (00:45→23:30)
[2019-04-25] MEDS: SODIUM CHLORIDE 0.9% 1000 ML 1,000 ML IV SCH ×3 (01:35→22:39)
[2019-04-25] MEDS: metroNIDAZOLE/NS 500 MG/100 ML 500 MG/100 ML BAG IV SCH ×3 (05:16→22:40)
[2019-04-25] MEDS: ACETAMINOPHEN 325 MG TAB PO PRN (05:16)
[2019-04-25 05:44] LABS: Hematocrit 30.5 % (30.3-42.9); Hemoglobin 10.7 gm/dl (10.1-14.3); Mean Corpuscular HGB Conc 35 % (30-34); Mean Corpuscular Volume 88 fl (79-97); Platelet Count 228 K/mm3 (140-440); Red Blood Count 3.47 M/mm3 (3.65-5.03); Red Cell Distribution Width 15.1 % (13.2-15.2)
[2019-04-25 05:52] LABS: Alanine Aminotransferase 61 units/L (7-56); Albumin 2.5 g/dL (3.9-5); BUN/Creatinine Ratio 9; Blood Urea Nitrogen 7 mg/dL (7-17); Calcium 7.6 mg/dL (8.4-10.2); Hemolysis Index 0
[2019-04-25 06:23] LABS: Basophils % (Manual) 0 % (0.0-1.8); Eosinophils % (Manual) 0 % (0.0-4.3); Target Cells Few; Total Cells Counted 100
[2019-04-25 06:24] LABS: Platelet Estimate Consistent w Auto
[2019-04-25] MEDS: CEFEPIME/NS 2 GM/100 ML 2 GM/100 ML BAG IV SCH ×3 (06:33→22:05)
[2019-04-25] MEDS ORDERED: POTASSIUM CHLORIDE ER 20 MEQ TAB PO ONE (06:40)
--- NOTE | 2019-04-25 09:13 | Progress Note ---
Assessment and Plan - Patient Problems (1) Gallstones Current Visit: No Status: Acute Plan to address problem: Pt stable. Patient had a significant elevation in white count today along with fevers yesterday. LFTs still have an unusual pattern. The total bilirubin is unchanged. ALT and AST are slightly elevated. Alkaline phosphatase is lower. Her abdominal pain especially across the upper abdomen is improved. She has more lower abdominal pain now and she is having diarrhea. Very unusual picture if this is related to a cholecystitis situation. Will order HIDA scan today to further evaluate whether the gallbladder is contributing to her overall clinical picture. We will follow along. Please call with questions Time=10min Subjective Date of service: 04/25/19 Patient Reports: Positive: tolerating liquids well, diarrhea, vomiting (last night at 1am when she got up to use the bathroom), fever Objective Vital Signs - 12hr 04/24/19 04/25/19 04/25/19 21:59 05:03 06:40 Temperature 98.7 F 101.3 F H 99.4 F Pulse Rate 91 H 93 H Respiratory 20 18 Rate Blood Pressure 98/52 121/76 O2 Sat by Pulse 96 98 Oximetry 04/25/19 08:13 Temperature Pulse Rate Respiratory Rate Blood Pressure O2 Sat by Pulse 98 Oximetry - General physical appearance no distress, no pain, other (she looks slightly better. appears to have a little more energy) - Respiratory normal expansion, normal respiratory effort - Abdomen soft, tender (mild, diffuse. Epigastric tenderness and RUQ tenderness improved.), not distended, not guarding, not rigid - Psychiatric oriented to time, oriented to person, oriented to place, speech is normal, memory intact - Labs 04/25/19 04:52 04/25/19 04:52 Diabetes panel 04/25/19 Range/Units 04:52 Sodium 142 (137-145) mmol/L Potassium 2.7 L* (3.6-5.0) mmol/L Chloride 106.2 (98-107) mmol/L Carbon Dioxide 21 L (22-30) mmol/L BUN 7 (7-17) mg/dL Creatinine 0.8 (0.7-1.2) mg/dL Glucose 139 H (65-100) mg/dL Calcium 7.6 L (8.4-10.2) mg/dL AST 57 H (5-40) units/L ALT 61 H (7-56) units/L Alkaline Phosphatase 133 H (35-129) units/L Total Protein 5.8 L (6.3-8.2) g/dL Albumin 2.5 L (3.9-5) g/dL Calcium panel 04/25/19 Range/Units 04:52 Calcium 7.6 L (8.4-10.2) mg/dL Albumin 2.5 L (3.9-5) g/dL Pituitary panel 04/25/19 Range/Units 04:52 Sodium 142 (137-145) mmol/L Potassium 2.7 L* (3.6-5.0) mmol/L Chloride 106.2 (98-107) mmol/L Carbon Dioxide 21 L (22-30) mmol/L BUN 7 (7-17) mg/dL Creatinine 0.8 (0.7-1.2) mg/dL Glucose 139 H (65-100) mg/dL Calcium 7.6 L (8.4-10.2) mg/dL Adrenal panel 04/25/19 Range/Units 04:52 Sodium 142 (137-145) mmol/L Potassium 2.7 L* (3.6-5.0) mmol/L Chloride 106.2 (98-107) mmol/L Carbon Dioxide 21 L (22-30) mmol/L BUN 7 (7-17) mg/dL Creatinine 0.8 (0.7-1.2) mg/dL Glucose 139 H (65-100) mg/dL Calcium 7.6 L (8.4-10.2) mg/dL Total Bilirubin 2.80 H (0.1-1.2) mg/dL AST 57 H (5-40) units/L ALT 61 H (7-56) units/L Alkaline Phosphatase 133 H (35-129) units/L Total Protein 5.8 L (6.3-8.2) g/dL Albumin 2.5 L (3.9-5) g/dL
--- NOTE | 2019-04-25 09:36 | Progress Note ---
Assessment and Plan Sepsis, POA - likely due to Acute pyelonephritis which failed outpatient therapy and cholecystitis - cont IV Rocephin, negative blood cultures, IV fluid Cholelithiasis with acute cholecystitis - Consulted surgery, IV morphine as needed, cont iv abx - white count trended up with worsening symptoms - s/p HIDA scan today - nonvisualization of the gallbladder consistent with acute cholecystitis. - plan for surgery tomorrow Hypokalemia, cont to replete, check Mg, BMP Obesity, balance diet when clinically stable Elevated LFT, from acute cholecystitis - cont to trend DVT prophylaxis, SCD Brief History: 28-year-old woman with no medical problem comes emergency room with complaints of epigastric pain. She was diagnosed with acute pyelonephritis a day before this admission and given ciprofloxacin to take. The patient continues to have nausea vomiting, unable to tolerate oral intake, so she returns to ER with worsening of her symptoms. Patient was admitted for acute pyelonephritis, cholelithiasis. Subjective Date of service: 04/25/19 Interval history: Patient seen and examined increased white count today, patient cont to c/o nausea, diarrhea and abdominal pain s/p HIDA scan today Objective - Exam Narrative Exam: Gen. appearance: Patient lying in bed, mild apparent distress HEENT: Normocephalic, atraumatic, pupils equally round and reactive to light, extraocular movement intact, and no sclericterus,. No JVD or thyromegaly or nodule,neck supple, no carotid bruit ,mucous membranes moist, no exudate or erythema Heart: S1, S2, regular rate and rhythm Lungs clear bilaterally, breathing comfortable Abdomen: Positive bowel sounds, tender in the epigastric area, nondistended, no organomegaly Extremity: no edema, cyanosis, clubbing Skin: No rash, nodules, warm, dry Neuro: speech is fluent, moves extremities, sensory intact - Constitutional Vitals: Vital Signs - 12hr 04/24/19 04/25/19 04/25/19 21:59 05:03 06:40 Temperature 98.7 F 101.3 F H 99.4 F Pulse Rate 91 H 93 H Respiratory 20 18 Rate Blood Pressure 98/52 121/76 O2 Sat by Pulse 96 98 Oximetry 04/25/19 08:13 Temperature Pulse Rate Respiratory Rate Blood Pressure O2 Sat by Pulse 98 Oximetry - Labs CBC & Chem 7: 04/25/19 04:52 04/25/19 04:52 Labs: Abnormal lab results 04/25/19 04/25/19 Range/Units 04:52 04:52 WBC 35.3 H (4.5-11.0) K/mm3 RBC 3.47 L (3.65-5.03) M/mm3 MCHC 35 H (30-34) % Seg Neuts % (Manual) 95.0 H (40.0-70.0) % Lymphocytes % (Manual) 3.0 L (13.4-35.0) % Seg Neutrophils # Man 33.5 H (1.8-7.7) K/mm3 Lymphocytes # (Manual) 1.1 L (1.2-5.4) K/mm3 Potassium 2.7 L* (3.6-5.0) mmol/L Carbon Dioxide 21 L (22-30) mmol/L Glucose 139 H (65-100) mg/dL Calcium 7.6 L (8.4-10.2) mg/dL Total Bilirubin 2.80 H (0.1-1.2) mg/dL AST 57 H (5-40) units/L ALT 61 H (7-56) units/L Alkaline Phosphatase 133 H (35-129) units/L Total Protein 5.8 L (6.3-8.2) g/dL Albumin 2.5 L (3.9-5) g/dL
--- NOTE | 2019-04-25 13:31 | Nuclear Medicine Report ---
NUCLEAR MEDICINE HEPATOBILIARY SCAN INDICATION: Right upper quadrant pain, cholelithiasis. TECHNIQUE: Radiotracer: Tc-99m mebrofenin (by IV): 5.5 mCi. FINDINGS: Hepatic activity: Normal. Biliary activity: Normal. Common bile duct activity at 20 minutes. Gallbladder activity: Gallbladder is not visualized Small bowel activity: Normal at 20 minutes. IMPRESSION: 1. There is nonvisualization of the gallbladder. In light of the appearance of the gallbladder on the recent CT, this is characteristic of cholecysti tis. Signer Name: Shay Oliveira MD Signed: 04/25/2019 1:26 PM Workstation Name: [id number]
[2019-04-25] MEDS: PANTOPRAZOLE 40 MG INJ IV SCH ×2 (15:20→22:08)
[2019-04-25] MEDS: MORPHINE 2 MG/1 ML INJ IV PRN ×2 (15:24→22:14)
[2019-04-25] MEDS: POTASSIUM CHLORIDE 10 MEQ 10 MEQ/100 ML BAG IV SCH ×3 (17:04→19:05)
[2019-04-25] MEDS: ENOXAPARIN 40 MG/0.4 ML INJ SUB-Q SCH (17:05)
--- NOTE | 2019-04-25 17:49 | Event Note ---
Date: 04/25/19 HIDA scan images and report reviewed - nonvisualization of the gallbladder consistent with acute cholecystitis. Patient states that she is been feeling nauseated and has had a few episodes of emesis today. Febrile. She continues to complain of abdominal pain. I discussed the results of the HIDA scan with the patient as well as the recommendation to proceed with cholecystectomy. All risks, benefits, alternatives to surgery were discussed with the patient and questions answered. Consent obtained for laparoscopic cholecystectomy, possible open, possible cholangiogram. Patient added to the OR schedule for tomorrow. N.p.o. past midnight tonight. Continue IV abx.
[2019-04-26] MEDS: POTASSIUM CHLORIDE 10 MEQ 10 MEQ/100 ML BAG IV SCH ×6 (01:56→20:30)
[2019-04-26] MEDS: SUCRALFATE 1 GM TAB PO SCH ×3 (05:56→19:26)
[2019-04-26] MEDS: MORPHINE 2 MG/1 ML INJ IV PRN ×2 (05:56→23:23)
[2019-04-26] MEDS: CEFEPIME/NS 2 GM/100 ML 2 GM/100 ML BAG IV SCH ×3 (05:58→22:26)
[2019-04-26] MEDS: SODIUM CHLORIDE 0.9% 1000 ML 1,000 ML IV SCH (06:03)
[2019-04-26 06:21] LABS: Hematocrit 25.5 % (30.3-42.9); Hemoglobin 9.1 gm/dl (10.1-14.3); Mean Corpuscular HGB Conc 36 % (30-34); Mean Corpuscular Volume 87 fl (79-97); Platelet Count 247 K/mm3 (140-440); Red Blood Count 2.93 M/mm3 (3.65-5.03); Red Cell Distribution Width 14.7 % (13.2-15.2)
[2019-04-26] MEDS: metroNIDAZOLE/NS 500 MG/100 ML 500 MG/100 ML BAG IV SCH ×3 (06:36→23:22)
[2019-04-26 06:42] LABS: BUN/Creatinine Ratio 8; Blood Urea Nitrogen 5 mg/dL (7-17); Calcium 7.7 mg/dL (8.4-10.2); Hemolysis Index 0
[2019-04-26] MEDS ORDERED: SODIUM CHLORIDE 0.9% 250ML 250 ML ONE (07:38)
[2019-04-26] MEDS ORDERED: LIDOCAINE 1%/EPINEPHRINE 1:100,000 VIAL (20 ML) INFILTRATI ONE ×2 (07:38→13:11)
[2019-04-26] MEDS ORDERED: BUPIVACAINE/PF (0.5%) 5 MG/1 ML 30 ML VIAL INFILTRATI ONE ×2 (07:38→13:11)
--- NOTE | 2019-04-26 07:59 | Progress Note ---
Assessment and Plan Assessment and plan: Patient is a 28-year-old woman with no medical problem comes emergency room with complaints of epigastric pain. She was diagnosed with acute pyelonephritis a day before this admission and given ciprofloxacin to take. The patient continues to have nausea vomiting, unable to tolerate oral intake, so she returns to ER with worsening of her symptoms. Patient was admitted for acute pyelonephritis, cholelithiasis. HIDA study: 1. There is nonvisualization of the gallbladder. In light of the appearance of the gallbladder on the recent CT, this is characteristic of cholecystitis. * Surgery was consulted and evaluated the patient due to gallstones noted a HIDA study was obtained which was consistent with Macie cystitis. Although her transaminases are improving her total bilirubin has remained unchanged. She remains nauseous and per surgery very unusual picture of this is related to acute cholecystitis situation prior to obtaining the HIDA study which confirms an acute cholecystitis. 04/26: In addition to ongoing treatment considering the unusual presentation and also significantly elevated leukocytosis despite recent antibiotic therapy will obtain infection disease specialist consultation to assist with management of underlying sepsis. Lactic acidosis is normal. Will increase fluids by giving a bolus today in preparation for surgery. We will also replace potassium. Sepsis, POA - likely due to Acute pyelonephritis which failed outpatient therapy and cholecystitis - cont IV Rocephin, negative blood cultures, IV fluid - ID consulted Cholelithiasis with acute cholecystitis - Consulted surgery, IV morphine as needed, cont iv abx - white count trended up with worsening symptoms - s/p HIDA scan today - nonvisualization of the gallbladder consistent with acute cholecystitis. - plan for surgery Hypokalemia, cont to replete, will also give a gram of magnesium Obesity, balance diet when clinically stable Elevated LFT, from acute cholecystitis - cont to trend DVT prophylaxis, SCD History Interval history: Patient going to the OR today no acute distress no adverse event reported to me overnight. Hospitalist Physical - Physical exam Narrative exam: Gen. appearance: Patient lying in bed, in no distress at this time HEENT: Normocephalic, atraumatic, pupils equally round and reactive to light, extraocular movement intact, and no sclericterus,. No JVD or thyromegaly or nodule,neck supple, no carotid bruit ,mucous membranes moist, no exudate or erythema Heart: S1, S2, regular rate and rhythm Lungs clear bilaterally, breathing comfortable Abdomen: Positive bowel sounds, tender in the epigastric area, nondistended, no organomegaly Extremity: no edema, cyanosis, clubbing Skin: No rash, nodules, warm, dry Neuro: speech is fluent, moves extremities, sensory intact - Constitutional Vitals: Temp Pulse Resp BP Pulse Ox 99.4 F 74 18 142/77 95 04/26/19 05:45 04/26/19 05:45 04/26/19 05:45 04/26/19 05:45 04/26/19 05:45 Results - Labs CBC & Chem 7: 04/27/19 04:16 04/27/19 04:16 Labs: Laboratory Last Values WBC 33.0 K/mm3 (4.5-11.0) H 04/26/19 05:38 RBC 2.93 M/mm3 (3.65-5.03) L 04/26/19 05:38 Hgb 9.1 gm/dl (10.1-14.3) L 04/26/19 05:38 Hct 25.5 % (30.3-42.9) L 04/26/19 05:38 MCV 87 fl (79-97) 04/26/19 05:38 MCH 31 pg (28-32) 04/26/19 05:38 MCHC 36 % (30-34) H 04/26/19 05:38 RDW 14.7 % (13.2-15.2) 04/26/19 05:38 Plt Count 247 K/mm3 (140-440) 04/26/19 05:38 Add Manual Diff Complete 04/25/19 04:52 Total Counted 100 04/25/19 04:52 Seg Neutrophils % Retail Beauty Specialist 04/25/19 04:52 Seg Neuts % (Manual) 95.0 % (40.0-70.0) H 04/25/19 04:52 Band Neutrophils % 0 % 04/25/19 04:52 Lymphocytes % (Manual) 3.0 % (13.4-35.0) L 04/25/19 04:52 Reactive Lymphs % (Man) 0 % 04/25/19 04:52 Monocytes % (Manual) 2.0 % (0.0-7.3) 04/25/19 04:52 Eosinophils % (Manual) 0 % (0.0-4.3) 04/25/19 04:52 Basophils % (Manual) 0 % (0.0-1.8) 04/25/19 04:52 Metamyelocytes % 0 % 04/25/19 04:52 Myelocytes % 0 % 04/25/19 04:52 Promyelocytes % 0 % 04/25/19 04:52 Blast Cells % 0 % 04/25/19 04:52 Nucleated RBC % Not Reportable 04/25/19 04:52 Seg Neutrophils # Man 33.5 K/mm3 (1.8-7.7) H 04/25/19 04:52 Band Neutrophils # 0.0 K/mm3 04/25/19 04:52 Lymphocytes # (Manual) 1.1 K/mm3 (1.2-5.4) L 04/25/19 04:52 Abs React Lymphs (Man) 0.0 K/mm3 04/25/19 04:52 Monocytes # (Manual) 0.7 K/mm3 (0.0-0.8) 04/25/19 04:52 Eosinophils # (Manual) 0.0 K/mm3 (0.0-0.4) 04/25/19 04:52 Basophils # (Manual) 0.0 K/mm3 (0.0-0.1) 04/25/19 04:52 Metamyelocytes # 0.0 K/mm3 04/25/19 04:52 Myelocytes # 0.0 K/mm3 04/25/19 04:52 Promyelocytes # 0.0 K/mm3 04/25/19 04:52 Blast Cells # 0.0 K/mm3 04/25/19 04:52 WBC Morphology Not Reportable 04/25/19 04:52 Hypersegmented Neuts Not Reportable 04/25/19 04:52 Hyposegmented Neuts Not Reportable 04/25/19 04:52 Hypogranular Neuts Not Reportable 04/25/19 04:52 Smudge Cells Not Reportable 04/25/19 04:52 Toxic Granulation Not Reportable 04/25/19 04:52 Toxic Vacuolation Not Reportable 04/25/19 04:52 Dohle Bodies Not Reportable 04/25/19 04:52 Pelger-Huet Anomaly Not Reportable 04/25/19 04:52 Michelle Rods Not Reportable 04/25/19 04:52 Platelet Estimate Consistent w auto 04/25/19 04:52 Clumped Platelets Not Reportable 04/25/19 04:52 Plt Clumps, EDTA Not Reportable 04/25/19 04:52 Large Platelets Not Reportable 04/25/19 04:52 Giant Platelets Not Reportable 04/25/19 04:52 Platelet Satelliting Not Reportable 04/25/19 04:52 Plt Morphology Comment Not Reportable 04/25/19 04:52 RBC Morphology Not Reportable 04/25/19 04:52 Dimorphic RBCs Not Reportable 04/25/19 04:52 Polychromasia Not Reportable 04/25/19 04:52 Hypochromasia Not Reportable 04/25/19 04:52 Poikilocytosis Not Reportable 04/25/19 04:52 Anisocytosis Not Reportable 04/25/19 04:52 Microcytosis Not Reportable 04/25/19 04:52 Macrocytosis Not Reportable 04/25/19 04:52 Spherocytes Not Reportable 04/25/19 04:52 Pappenheimer Bodies Not Reportable 04/25/19 04:52 Sickle Cells Not Reportable 04/25/19 04:52 Target Cells Few 04/25/19 04:52 Tear Drop Cells Not Reportable 04/25/19 04:52 Ovalocytes Not Reportable 04/25/19 04:52 Helmet Cells Not Reportable 04/25/19 04:52 Schaeffer-[place] Bodies Not Reportable 04/25/19 04:52 Mondovi Rings Not Reportable 04/25/19 04:52 Amada Cells Not Reportable 04/25/19 04:52 Bite Cells Not Reportable 04/25/19 04:52 Crenated Cell Not Reportable 04/25/19 04:52 Elliptocytes Not Reportable 04/25/19 04:52 Acanthocytes (Spur) Not Reportable 04/25/19 04:52 Rouleaux Not Reportable 04/25/19 04:52 Hemoglobin C Crystals Not Reportable 04/25/19 04:52 Schistocytes Not Reportable 04/25/19 04:52 Malaria parasites Not Reportable 04/25/19 04:52 Varun Bodies Not Reportable 04/25/19 04:52 Hem Pathologist Commnt No 04/25/19 04:52 Sodium 140 mmol/L (137-145) 04/26/19 05:38 Potassium 3.0 mmol/L (3.6-5.0) L 04/26/19 05:38 Chloride 105.4 mmol/L (98-107) 04/26/19 05:38 Carbon Dioxide 20 mmol/L (22-30) L 04/26/19 05:38 Anion Gap 18 mmol/L 04/26/19 05:38 BUN 5 mg/dL (7-17) L 04/26/19 05:38 Creatinine 0.6 mg/dL (0.7-1.2) L 04/26/19 05:38 Estimated GFR > 60 ml/min 04/26/19 05:38 BUN/Creatinine Ratio 8 % 04/26/19 05:38 Glucose 110 mg/dL (65-100) H 04/26/19 05:38 Lactic Acid 1.70 mmol/L (0.7-2.0) 04/24/19 08:37 Calcium 7.7 mg/dL (8.4-10.2) L 04/26/19 05:38 Total Bilirubin 2.80 mg/dL (0.1-1.2) H 04/25/19 04:52 AST 57 units/L (5-40) H 04/25/19 04:52 ALT 61 units/L (7-56) H 04/25/19 04:52 Alkaline Phosphatase 133 units/L (35-129) H 04/25/19 04:52 Total Protein 5.8 g/dL (6.3-8.2) L 04/25/19 04:52 Albumin 2.5 g/dL (3.9-5) L 04/25/19 04:52 Albumin/Globulin Ratio 0.8 % 04/25/19 04:52 HCG, Qual Negative (Negative) 04/26/19 05:38 Urine Color Yvonne (Yellow) 04/24/19 02:15 Urine Turbidity Cloudy (Clear) 04/24/19 02:15 Urine pH 5.0 (5.0-7.0) 04/24/19 02:15 Ur Specific [place] 1.020 (1.003-1.030) 04/24/19 02:15 Urine Protein 100 mg/dl mg/dL (Negative) 04/24/19 02:15 Urine Glucose (UA) Neg mg/dL (Negative) 04/24/19 02:15 Urine Ketones Neg mg/dL (Negative) 04/24/19 02:15 Urine Blood Sm (Negative) 04/24/19 02:15 Urine Nitrite Neg (Negative) 04/24/19 02:15 Urine Bilirubin Sm (Negative) 04/24/19 02:15 Urine Ictotest Positive (Negative) 04/24/19 02:15 Urine Urobilinogen 4.0 mg/dL (<2.0) 04/24/19 02:15 Ur Leukocyte Esterase Mod (Negative) 04/24/19 02:15 Urine WBC (Auto) 141.0 /HPF (0.0-6.0) H 04/24/19 02:15 Urine RBC (Auto) 8.0 /HPF (0.0-6.0) 04/24/19 02:15 U Epithel Cells (Auto) 6.0 /HPF (0-13.0) 04/24/19 02:15 Urine Bacteria (Auto) 1+ /HPF (Negative) 04/24/19 02:15 Urine WBC Clumps 3+ /HPF 04/24/19 02:15 Hyaline Casts 4 /LPF 04/24/19 02:15 Urine Mucus Few /HPF 04/24/19 02:15 Active Medications - Current Medications Current Medications: Generic Name Dose Route Start Last Admin Trade Name Freq PRN Reason Stop Dose Admin Acetaminophen 650 mg 04/24/19 03:29 04/25/19 05:16 Tylenol PO 650 mg Q4H PRN Administration Pain MILD(1-3)/Fever >100.5/RANKIN Enoxaparin Sodium 40 mg 04/24/19 10:00 04/25/19 17:05 Enoxaparin SUB-Q 40 mg QDAY IJEOMA Administration Cefepime HCl 2 gm in 100 mls @ 200 mls/hr 04/24/19 00:10 04/26/19 05:58 Cefepime/Ns 2 Gm/100 Ml IV 200 mls/hr Q8HR IJEOMA Administration Protocol Metronidazole 500 mg in 100 mls @ 100 mls/hr 04/24/19 00:10 04/26/19 06:36 Flagyl 500 Mg/100 Ml IV 100 mls/hr Q8HR IJEOMA Administration Protocol Sodium Chloride 1,000 mls @ 150 mls/hr 04/24/19 03:30 04/26/19 06:03 Nacl 0.9% 1000 Ml IV 150 mls/hr DIRECT IJEOMA Administration Potassium Chloride 10 meq in 100 mls @ 100 mls/hr 04/26/19 09:00 Kcl 10meq/100ml IV 04/26/19 12:59 Q1H IJEOMA Potassium Chloride 10 meq in 100 mls @ 100 mls/hr 04/26/19 08:00 Kcl 10meq/100ml IV 04/26/19 11:59 Q1H IJEOMA Magnesium Sulfate 1 gm/ Sodium 52 mls @ 52 mls/hr 04/26/19 07:56 Chloride IV 04/26/19 08:55 ONCE ONE Sodium Chloride 1,000 mls @ 999 mls/hr 04/26/19 07:57 Nacl 0.9% 1000 Ml IV 04/26/19 08:57 BOLUS ONE Morphine Sulfate 2 mg 04/24/19 03:29 04/26/19 05:56 Morphine IV 2 mg Q4H PRN Administration Pain, Moderate (4-6) Ondansetron HCl 4 mg 04/24/19 03:29 04/25/19 01:35 Zofran IV 4 mg Q4H PRN Administration Nausea And Vomiting Pantoprazole Sodium 40 mg 04/24/19 10:00 04/25/19 22:08 Protonix IV 40 mg BID IJEOMA Administration Potassium Chloride 40 meq 04/26/19 10:00 K-Dur PO QDAY IJEOMA Sodium Chloride 10 ml 04/24/19 10:00 04/25/19 22:09 Sodium Chloride Flush Syringe 10 Ml IV 10 ml BID IJEOMA Administration Sodium Chloride 10 ml 04/24/19 03:29 Sodium Chloride Flush Syringe 10 Ml IV PRN PRN LINE FLUSH Sucralfate 1 gm 04/24/19 12:00 04/26/19 05:56 Carafate PO Not Given Q6HR IJEOMA
[2019-04-26] MEDS ORDERED: SODIUM CHLORIDE 0.9% 1000 ML 1,000 ML IV ONE (08:30)
--- NOTE | 2019-04-26 08:55 | Anesthesia Day of Surgery ---
Anesthesia Day of Surgery - Day of Surgery Patient Examined: Yes Patient H&P Reviewed: Yes Patient is NPO: Yes Beta Blockers: No
--- NOTE | 2019-04-26 08:55 | Anesthesia Consultation ---
<DEVONTE ROMERO - Last Filed: 04/26/19 08:53> Anesthesia Consult and Med Hx Date of service: 04/26/19 - Airway Anesthetic Teeth Evaluation: Good ROM Head & Neck: Adequate Mental/Hyoid Distance: Adequate Mallampati Class: Class III Intubation Access Assessment: Probably Good - Pre-Operative Health Status ASA Pre-Surgery Classification: ASA2 Proposed Anesthetic Plan: General - Pulmonary Hx Smoking: Yes (5 cigars a day) - Central Nervous System Hx Psychiatric Problems: No - Endocrine Hx Renal Disease: Yes (Kidney stones) Hx Liver Disease: Yes (Gallstones) - Hematic Hx Anemia: Yes (H&H 9.1&25.5) - Other Systems Hx Cancer: No <CRICKET CHARLES I - Last Filed: 04/26/19 10:32> Anesthesia Consult and Med Hx - Endocrine Hx End Stage Renal Disease: Yes - Additional Comments Anesthesia Medical History Comments: Admitted with acute pyelonephritis
[2019-04-26] MEDS ORDERED: POTASSIUM CHLORIDE 10 MEQ 10 MEQ/100 ML BAG IV SCH (09:00)
[2019-04-26] MEDS: ENOXAPARIN 40 MG/0.4 ML INJ SUB-Q SCH (10:00)
[2019-04-26] MEDS ORDERED: MAGNESIUM SULFATE 1 GM in SODIUM CHLORIDE 0.9% 50 ML IV ONE (10:00)
[2019-04-26] MEDS: POTASSIUM CHLORIDE ER 20 MEQ TAB PO SCH (10:00)
[2019-04-26] MEDS: PANTOPRAZOLE 40 MG INJ IV SCH ×2 (10:00→22:25)
[2019-04-26] MEDS ORDERED: fentaNYL 100 MCG/2 ML INJ IV PRN (10:30)
[2019-04-26] MEDS ORDERED: ONDANSETRON 4 MG/2 ML INJ IV PRN (10:30)
[2019-04-26] MEDS ORDERED: SCOPOLAMINE TRANSDERMAL PATCH 72 HR TD NR (11:00)
[2019-04-26] MEDS ORDERED: MIDAZOLAM 2 MG/2 ML INJ IV NR (11:00)
[2019-04-26] MEDS ORDERED: MORPHINE 2 MG/1 ML INJ IV ONE (11:58)
[2019-04-26] MEDS ORDERED: ROCURONIUM 50 MG/5 ML INJ IV ONE ×2 (12:01→13:13)
[2019-04-26] MEDS ORDERED: propofoL 200 MG/20 ML VIAL IV ONE (12:01)
[2019-04-26] MEDS ORDERED: MIDAZOLAM 2 MG/2 ML INJ ONE (12:01)
[2019-04-26] MEDS ORDERED: LIDOCAINE MPF (2%) 20 MG/1 ML VIAL 5 ML ONE (12:01)
[2019-04-26] MEDS ORDERED: METOCLOPRAMIDE 10 MG/2 ML INJ ONE (12:01)
[2019-04-26] MEDS ORDERED: ONDANSETRON 4 MG/2 ML INJ ONE (12:01)
[2019-04-26] MEDS ORDERED: dexAMETHasone 20 MG/5 ML VIAL ONE (12:01)
[2019-04-26] MEDS ORDERED: fentaNYL 100 MCG/2 ML INJ ONE (12:01)
[2019-04-26] MEDS ORDERED: HYDROmorphone 1 MG/1 ML INJ ONE (12:39)
[2019-04-26] MEDS ORDERED: LACTATED RINGERS 1,000 ML ONE (13:11)
[2019-04-26] MEDS ORDERED: SODIUM CHLORIDE 0.9% IRRIG SOLN 2000 ML IR ONE (13:11)
[2019-04-26] MEDS ORDERED: KETOROLAC 30 MG/1 ML INJ ONE (13:13)
[2019-04-26] MEDS ORDERED: ESMOLOL 100 MG/10 ML INJ IV ONE (13:39)
[2019-04-26] MEDS ORDERED: NEOSTIGMINE 10MG/10 ML INJ MDV ONE (14:59)
[2019-04-26] MEDS ORDERED: GLYCOPYRROLATE 0.4 MG/2 ML INJ ONE ×2 (14:59)
[2019-04-26] MEDS ORDERED: metroNIDAZOLE/NS 500 MG/100 ML 0 MG/0 ML BAG IV ONE (15:29)
--- NOTE | 2019-04-26 15:32 | Post Operative Note ---
Pre-op diagnosis: acute cholecystitis Post-op diagnosis: same Findings: Extremely inflamed gallbladder with thickened wall. Adhesions from the omentum to the gallbladder. Large stones and purulent sludge in gallbladder. Acute on chronic scarring of the gallbladder neck. Hydrops of gallbladder Procedure: laparoscopic cholecystectomy Anesthesia: GETA, local Surgeon: RON DYE Ultrasonic Seaming Machine Operator: WIN RAMOS Estimated blood loss: 50-100ml Pathology: list (gallbladder) Specimen disposition: to lab Condition: stable Disposition: PACU
[2019-04-26] MEDS ORDERED: oxyCODONE /ACETAMINOPHEN 5-325MG TAB PO PRN (15:33)
--- NOTE | 2019-04-26 15:52 | Event Note ---
Date: 04/26/19 Attempted to see patient twice in the morning and then in the evening unsuccessfully, she is in the operating room. ID consulted for leukocytosis. Fevers improving. Patient noted to have acute cholecystitis and UTI. Blood culture so far negative. Urine culture pending. Agree with cefepime and Flagyl for now. Full consultation to follow. Discussed with Dr. Ramírez
--- NOTE | 2019-04-26 20:45 | Post Anesthesia Evaluation ---
- Post Anesthesia Evaluation Patient Participated: Yes Airway Patent: Yes Stable Respiratory Function: Yes Nausea/Vomiting: No Temp > 96.8F: Yes Pain Manageable: Yes Adequeate Hydration: Yes Anesthesia Complications: No Block Receding Appropriately: Not Applicable Patient on Ventilator: No
[2019-04-27 05:40] LABS: Hematocrit 25.9 % (30.3-42.9); Mean Corpuscular HGB Conc 35 % (30-34); Mean Corpuscular Volume 88 fl (79-97); Platelet Count 273 K/mm3 (140-440); Red Blood Count 2.95 M/mm3 (3.65-5.03); Red Cell Distribution Width 14.4 % (13.2-15.2)
[2019-04-27 06:13] LABS: Alanine Aminotransferase 46 units/L (7-56); Albumin 2.3 g/dL (3.9-5); BUN/Creatinine Ratio 13; Blood Urea Nitrogen 9 mg/dL (7-17); Calcium 7.5 mg/dL (8.4-10.2); Hemolysis Index 0
[2019-04-27] MEDS: CEFEPIME/NS 2 GM/100 ML 2 GM/100 ML BAG IV SCH (06:28)
[2019-04-27] MEDS: metroNIDAZOLE/NS 500 MG/100 ML 500 MG/100 ML BAG IV SCH (06:30)
[2019-04-27] MEDS: MORPHINE 2 MG/1 ML INJ IV PRN (07:58)
[2019-04-27] MEDS: POTASSIUM CHLORIDE ER 20 MEQ TAB PO SCH (09:53)
[2019-04-27] MEDS: ENOXAPARIN 40 MG/0.4 ML INJ SUB-Q SCH (09:53)
[2019-04-27] MEDS: PANTOPRAZOLE 40 MG INJ IV SCH (09:54)
--- NOTE | 2019-04-27 12:20 | Discharge Summary ---
Providers - Providers Date of Admission: 04/24/19 04:22 Attending physician: PATT SALDAÑA MD 04/24/19 03:29 Consult to Physician [CONS] Routine Comment: Consulting Provider: RON DYE Physician Instructions: Reason For Exam: gall stones 04/26/19 07:57 Consult to Physician [CONS] Routine Comment: Consulting Provider: VAISHALI VITAL Physician Instructions: Reason For Exam: SEPSIS Primary care physician: ASIAN STUDIES PROFESSOR Hospitalization Reason for admission: acute choleycystitis Condition: Stable Hospital course: Patient is a 28-year-old woman with no medical problem comes emergency room with complaints of epigastric pain. She was diagnosed with acute pyelonephritis a day before this admission and given ciprofloxacin to take. The patient continues to have nausea vomiting, unable to tolerate oral intake, so she returns to ER with worsening of her symptoms. Patient was admitted for acute pyelonephritis, cholelithiasis. HIDA study: 1. There is nonvisualization of the gallbladder. In light of the appearance of the gallbladder on the recent CT, this is characteristic of cholecystitis. * Surgery was consulted and evaluated the patient due to gallstones noted a HIDA study was obtained which was consistent with Macie cystitis. Although her transaminases are improving her total bilirubin has remained unchanged. She remains nauseous and per surgery very unusual picture of this is related to acute cholecystitis situation prior to obtaining the HIDA study which confirms an acute cholecystitis. 04/26: In addition to ongoing treatment considering the unusual presentation and also significantly elevated leukocytosis despite recent antibiotic therapy will obtain infection disease specialist consultation to assist with management of underlying sepsis. Lactic acidosis is normal. Will increase fluids by giving a bolus today in preparation for surgery. We will also replace potassium. : Patient is doing well post op day 1 tolerating diet, advised per surgery as noted below. also discussed follow up and repeat lab work 1) stay well-hydrated. May advance diet as tolerated. 2) May shower tomorrow. Pat dry wounds. If there is still drainage from the SARITA drain site, apply a new bandage each day until the drainage stops. 3) no heavy lifting or strenuous activity. 4) ambulate frequently 5) encouraged use of oral pain medication to help with incisional pain. Sepsis, POA secondary to Acute cholecystitis Cholelithiasis with acute cholecystitis Hypokalemia, cont to replete, will also give a gram of magnesium Obesity, balance diet when clinically stable Elevated LFT, from acute cholecystitis Pyelonephritis Disposition: DC-01 TO HOME OR SELFCARE Time spent for discharge: 35 mind Core Measure Documentation - Palliative Care Palliative Care/ Comfort Measures: Not Applicable - Core Measures Any of the following diagnoses?: none Exam - Physical Exam Narrative exam: Gen. appearance: Patient lying in bed, in no distress at this time HEENT: Normocephalic, atraumatic, pupils equally round and reactive to light, extraocular movement intact, and no sclericterus,. No JVD or thyromegaly or nodule,neck supple, no carotid bruit ,mucous membranes moist, no exudate or erythema Heart: S1, S2, regular rate and rhythm Lungs clear bilaterally, breathing comfortable Abdomen: Positive bowel sounds, tender mild at incision site, nondistended, no organomegaly Extremity: no edema, cyanosis, clubbing Skin: No rash, nodules, warm, dry Neuro: speech is fluent, moves extremities, sensory intact - Constitutional Vitals: Temp Pulse Resp BP Pulse Ox 98.3 F 78 18 118/73 98 04/27/19 05:53 04/27/19 05:53 04/27/19 05:53 04/27/19 07:57 04/27/19 05:53 Plan Activity: advance as tolerated, fall precautions Diet: low fat, advance as tolerated Special Instructions: record daily weights, record daily BP diary Additional Instructions: should have repeat lab work including CBC With primary doctor in 3-5 days Follow up with: ROLAND HERNANDEZ MD [Primary Care Provider] - 3-5 Days WIN RAMOS MD [Staff Physician] - 7 Days Prescriptions: Ciprofloxacin HCl [Ciprofloxacin TAB] 500 mg PO Q12HR 5 Days #10 tab metroNIDAZOLE [Flagyl TAB] 500 mg PO Q8HR 5 Days #14 tablet oxyCODONE /ACETAMINOPHEN [Percocet 5/325 mg] 1 tab PO Q6H PRN #14 tablet PRN Reason: Pain, Moderate (4-6)
--- NOTE | 2019-04-27 12:45 | Progress Note ---
Assessment and Plan - Patient Problems (1) Gallstones Current Visit: No Status: Acute Plan to address problem: Patient stable. Status post laparoscopic cholecystectomy-Postop day #1. There are no signs of any obvious complications. Drain was removed. She is cleared from surgical standpoint for discharge. Recommendations: 1) stay well-hydrated. May advance diet as tolerated. 2) May shower tomorrow. Pat dry wounds. If there is still drainage from the SARITA drain site, apply a new bandage each day until the drainage stops. 3) no heavy lifting or strenuous activity. 4) ambulate frequently 5) encouraged use of oral pain medication to help with incisional pain. 6) follow-up with Dr. Barnes in about 2 weeks. Patient should call for an appointment. Please call with questions Subjective Date of service: 04/27/19 Patient Reports: Positive: still having pain (but now it is incisional pain. The original pain in the upper abdomen is essentially gone.), tolerating liquids well (Does not want to advance diet at this time.) Objective Vital Signs - 12hr 04/27/19 04/27/19 04/27/19 05:53 07:57 12:17 Temperature 98.3 F 98.4 F Pulse Rate 78 89 Respiratory 18 14 Rate Blood Pressure 126/80 118/73 125/80 O2 Sat by Pulse 98 97 Oximetry - General physical appearance no distress, no pain - Eyes normal occular movement - Respiratory normal expansion, normal respiratory effort - Abdomen soft, not distended, surgical scars (Clear, dry, intact.), other (SARITA drain has only small amount of serosanguineous drainage. No evidence of bile.) - Psychiatric oriented to time, oriented to person, oriented to place, speech is normal, memory intact - Labs 04/27/19 04:16 04/27/19 04:16 Diabetes panel 04/27/19 Range/Units 04:16 Sodium 144 (137-145) mmol/L Potassium 3.5 L (3.6-5.0) mmol/L Chloride 109.1 H (98-107) mmol/L Carbon Dioxide 21 L (22-30) mmol/L BUN 9 (7-17) mg/dL Creatinine 0.7 (0.7-1.2) mg/dL Glucose 117 H (65-100) mg/dL Calcium 7.5 L (8.4-10.2) mg/dL AST 64 H (5-40) units/L ALT 46 (7-56) units/L Alkaline Phosphatase 116 (35-129) units/L Total Protein 5.7 L (6.3-8.2) g/dL Albumin 2.3 L (3.9-5) g/dL Calcium panel 04/27/19 Range/Units 04:16 Calcium 7.5 L (8.4-10.2) mg/dL Albumin 2.3 L (3.9-5) g/dL Pituitary panel 04/27/19 Range/Units 04:16 Sodium 144 (137-145) mmol/L Potassium 3.5 L (3.6-5.0) mmol/L Chloride 109.1 H (98-107) mmol/L Carbon Dioxide 21 L (22-30) mmol/L BUN 9 (7-17) mg/dL Creatinine 0.7 (0.7-1.2) mg/dL Glucose 117 H (65-100) mg/dL Calcium 7.5 L (8.4-10.2) mg/dL Adrenal panel 04/27/19 Range/Units 04:16 Sodium 144 (137-145) mmol/L Potassium 3.5 L (3.6-5.0) mmol/L Chloride 109.1 H (98-107) mmol/L Carbon Dioxide 21 L (22-30) mmol/L BUN 9 (7-17) mg/dL Creatinine 0.7 (0.7-1.2) mg/dL Glucose 117 H (65-100) mg/dL Calcium 7.5 L (8.4-10.2) mg/dL Total Bilirubin 1.30 H (0.1-1.2) mg/dL AST 64 H (5-40) units/L ALT 46 (7-56) units/L Alkaline Phosphatase 116 (35-129) units/L Total Protein 5.7 L (6.3-8.2) g/dL Albumin 2.3 L (3.9-5) g/dL
[2019-04-27 14:46] VITALS: BP 112/66
--- NOTE | 2019-04-29 10:06 | Operative Report ---
PREOPERATIVE DIAGNOSIS: Acute cholecystitis. POSTOPERATIVE DIAGNOSIS: Acute cholecystitis. FINDINGS: 1. Extremely inflamed gallbladder with thickened wall. 2. Adhesions from the omentum to the gallbladder. 3. Large stones and purulent sludge in the gallbladder. 4. Acute on chronic scarring of the gallbladder neck. 5. Hydrops of the gallbladder. PROCEDURE: Laparoscopic cholecystectomy. ANESTHESIA: General endotracheal anesthesia, local. SURGEON: Rosy Barnes DO NATIONAL RECRUITER SURGEON: Yamileth Peters MD ESTIMATED BLOOD LOSS: 50 mL. PATHOLOGY: Gallbladder. SPECIMEN DISPOSITION: To lab. CONDITION ON DISPOSITION: The patient is stable to PACU. HISTORY OF PRESENT ILLNESS AND INDICATION: The patient is a 28-year-old female who presented to the hospital with complaints of abdominal pain. The patient was found to have pyelonephritis also and was admitted for IV antibiotics. The patient underwent workup for her gallstones including an abdominal ultrasound and HIDA scan. The abdominal ultrasound was remarkable for cholelithiasis and HIDA scan showed non-filling of the gallbladder consistent with acute cholecystitis. It was recommended the patient undergo cholecystectomy. All risks, benefits and alternatives to surgery were discussed with the patient and questions answered. Consent was obtained. PROCEDURE IN DETAIL: The patient was identified in the preoperative area, taken back to the operating room and placed on the operating table in supine position. After anesthesia was induced, the abdomen was prepped and draped in the usual sterile fashion and timeout performed. Local anesthetic was infiltrated into all skin incision sites. In the supraumbilical 5 mm incision was made through which a Veress needle was inserted. The Veress needle position was confirmed using saline drop test and the abdomen insufflated to 50 mmHg. Once the abdomen was insufflated, a right upper quadrant 5 mm incision was made through which a 5 mm Optiview trocar was placed. The abdomen was then inspected. There was no underlying injury to any of the abdominal structures. The Veress needle was identified and removed. A 5 mm trocar was then placed at the umbilicus under direct visualization. A 12 mm subxiphoid and a right upper quadrant lateral trocar were placed under direct visualization. The gallbladder was obscured by adhesions from the omentum. These adhesions were taken down bluntly and the gallbladder visualized. The gallbladder was extremely tense and thickened, inflamed. It was decided to try and decompress the gallbladder in order to grasp it. A laparoscopic needle was inserted into the gallbladder and approximately 20 mL of clear bile was aspirated. Although the gallbladder still appeared enlarged, no additional bile leak could be aspirated. When the needle was removed a small amount of purulent bile did exude from the small hole. Gallbladder was grasped and retracted cephalad. The patient had a very fatty liver, which made retraction moderately difficult. The neck of the gallbladder was very inflamed, and therefore, it was decided to perform a dome down approach. The lateral and medial peritoneal reflections of the gallbladder were scored and dissection carried around the fundus of the gallbladder. The gallbladder was then dissected off the liver bed using a combination of hook electrocautery, blunt dissection, Harmonic scalpel. This dissection did take a prolonged amount of time due to friability of the liver and very thickened and inflamed gallbladder. The dissection was carried out very meticulously until the neck of the gallbladder was encountered. The peritoneum overlying the neck of the gallbladder was very carefully scored with the Harmonic. Very careful dissection was performed in order to identify the cystic duct. The cystic duct was identified and circumferentially dissected. The remainder of the tissue surrounding the cystic duct was very carefully dissected in order to ensure no other structures were present. Once the cystic artery was ligated using Harmonic scalpel, at this point only the cystic duct was seen entering the gallbladder and 3 clips were placed on the proximal aspect close to the entry point in the gallbladder. The duct was then transected distal to these clips directly at the base of the gallbladder. Gallbladder was placed in the right upper quadrant and the gallbladder fossa was copiously irrigated with saline and hemostasis very carefully ensured. There was no bleeding or bile leakage seen. The clips were visualized and intact. The surrounding structures were intact without any identifiable injury. Gallbladder was then placed into an EndoCatch bag and the 12 mm port and skin as well as fascia were extended in order to facilitate removal of the gallbladder. The gallbladder was removed via the 12 mm port and examined on the back table at the end of the case. The gallbladder was packed full of very large stones within extremely thickened wall and inflammation. There were no other structures seen entering the gallbladder. Once again copiously irrigated the gallbladder fossa until hemostasis was ensured. The patient was placed in neutral position and Benitez's pouch was irrigated until all the irrigant returned clear. No loose stones were seen. A 19-Kinyarwanda Harmeet drain was placed through the lateral right upper quadrant port and placed in the gallbladder fossa. The drain was sutured into place using a 2-0 nylon drain stitch. The remainder of the ports were then removed under direct visualization. The 12 mm port fascia was closed with multiple [id number] stitches using 0 Vicryl. The skin incisions were once again infiltrated with local anesthetic and the skin closed with 4-0 Monocryl subcuticular stitches and skin glue. Drain sponge was applied to the drain and covered with a Tegaderm. The case time was prolonged due to extensive lysis of adhesion and dissection. At the end of the case, all sponge, instrument, sharp counts were correct x 2. The patient was awoken from anesthesia, extubated, and taken to PACU in stable condition. [facility]# [id number] NOEMÍ/HERON LYNNE
== END 2019-04-27 16:20 | disposition home or self-care (01) | DRG 854 ==
LOC: ED 23:59 → 3A 04-24 04:22
PROVIDERS: ADMIT Internal Medicine; ATTEND Internal Medicine
PROC: 0FT44ZZ Resection of Gallbladder, Percutaneous Endoscopic Approach (ICD-10-PCS; principal; 2019-04-26)
DX: A41.9 Sepsis, unspecified organism (principal); N10 Acute pyelonephritis; K80.00 Calculus of gallbladder with acute cholecystitis without obstruction; K82.1 Hydrops of gallbladder; K82.8 Other specified diseases of gallbladder; F17.210 Nicotine dependence, cigarettes, uncomplicated; F12.90 Cannabis use, unspecified, uncomplicated; E87.6 Hypokalemia; E66.9 Obesity, unspecified; D64.9 Anemia, unspecified; Z71.6 Tobacco abuse counseling; Z82.49 Family history of ischemic heart disease and other diseases of the circulatory system; Z71.3 Dietary counseling and surveillance; Z68.33 Body mass index [BMI] 33.0-33.9, adult; Z87.442 Personal history of urinary calculi
CPT/HCPCS: 36415; 76705; 78226; 80048; 80053; 81001; 82140; 83735; 84132; 84703; 85007; 85025; 85027; 87040; 87086; 88304; 93005; 93010; 96361; 96367; 96374; 96375; 99406; G0378; A4217; A9537; C9113; J0692; J1100; J1170; J1650; J1885; J2250; J2270; J2405; J2704; J2710; J2765; J3010; J3475; J3480; J7030; J7050; J7120; Q9967